=== PATIENT | female | born 1960 | race Two or more races ===

== ENCOUNTER 2016-09-23 11:28 | Emergency (ER) | payer MEDICAID, OTHER ==
[~2016-09-23] VITALS: Ht 154.9 cm; Wt 81.6 kg
[~2016-09-23 11:28] MED LIST: BIAXIN250 MG ORAL; IBUPROFEN600 MG ORAL
[2016-09-23 11:40] VITALS: BP 156/67
[2016-09-23] MEDS ORDERED: DiphenhydrAMINE 50mg/ml Inj IVP ONE (12:00)
[2016-09-23] MEDS ORDERED: Aspirin Baby 81mg ORAL ONE (12:00)
[2016-09-23] MEDS ORDERED: Metoclopramide 10mg/2ml Inj IVP ONE (12:00)
[2016-09-23 12:22] LABS: APPEARANCE,URINE CLEAR; KETONES,URINE 2+ (NEGATIVE); LEUKOCYTE ESTERASE ,URINE 1+ (NEGATIVE); NITRITE,URINE NEGATIVE (NEGATIVE); PH,URINE 6 (4.5-8.0); PROTEIN,URINE NEGATIVE (NEGATIVE); UROBILINOGEN,URINE NORMAL MG/DL (0.0-1.0)
[2016-09-23 12:30] LABS: BACTERIA,URINE FEW /HPF; RBC,URINE 0-2 /HPF (0 - 2); SQUAMOUS EPITHELIAL CELL,UR FEW /LPF (NONE/OCC)
[2016-09-23 12:50] LABS: BASOPHILS % (AUTO) 0.8 % (0.0-2.0); EOSINOPHILS % (AUTO) 0.5 % (0.0-3.0); LYMPHOCYTES % (AUTO) 23.4 % (20.0-45.0); MEAN CORPUSCULAR HEMOGLOBIN 26.2 PG (27.0-31.0); MEAN CORPUSCULAR HGB CONC 31.2 G/DL (32.0-36.0); MEAN CORPUSCULAR VOLUME 84 FL (80-99); MEAN PLATELET VOLUME 6.4 FL (6.5-10.1); MONOCYTES % (AUTO) 5.2 % (1.0-10.0); PLATELET COUNT 277 K/UL (150-450); RED BLOOD COUNT 5.28 M/UL (4.20-5.40); RED CELL DISTRIBUTION WIDTH 14.2 % (11.6-14.8)
[2016-09-23 12:57] LABS: PROTHROMBIN TIME 10.9 SEC (9.30-11.50)
[2016-09-23 13:16] LABS: TROPONIN I < 0.30 ng/mL (<=0.30)
[2016-09-23 13:19] LABS: ALANINE AMINOTRANSFERASE 17 U/L (3-33); ALBUMIN/GLOBULIN RATIO 1.1 (1.0-2.7); ANION GAP 12 (5-15); ASPARTATE AMINO TRANSFERASE 16 U/L (5-40); CALCIUM 9.3 mg/dL (8.6-10.2); CARBON DIOXIDE 27 mEQ/L (20-30); CHLORIDE 99 mEQ/L (98-107); CREATININE 0.6 mg/dL (0.5-0.9); GLOMERULAR FILTRATION RATE > 60 mL/min (>60); HEMOLYSIS 16; POTASSIUM 4.4 mEQ/L (3.4-4.9); SODIUM 138 mEQ/L (135-145); TOTAL PROTEIN 7.9 g/dL (6.6-8.7)
[2016-09-23 13:59] LABS: ERYTHROCYTE SEDIMENTATION RATE 45 MM/HR (0-30)
--- NOTE | 2016-09-23 14:26 | Diagnostic Imaging Report ---
Indication: Right eye pain and head pain on the sixth nerve palsy Technique: Continuous helical CT scanning of the head was performed without intravenous contrast material. Axial and coronal 5 mm sections were generated. Radiation dose was minimized using automated exposure control Dose: Total Dose Length Product - DLP [address] Dose Index - CTDIvol(s) 70.38 mGy. Comparison: 09/12/2015 Findings: The ventricular system is normal in size and configuration. There is no shift of midline structures. No abnormal extra-axial fluid collections are noted. There is no evidence of intracerebral bleeding. No other abnormal high or low density areas are noted within the brain. Left middle fossa probable arachnoid cyst is again demonstrated Visualized orbits are unremarkable. There is sphenoid sinus mucosal disease again demonstrated. The mastoids are clear. Calvarium is intact. No significant interim change Impression: Negative for acute intracranial bleed or mass effect Prominent extra-axial CSF density left temporal tip, may represent a small arachnoid cyst Sinus disease The CT scanner at [facility] is accredited by the [employer] and the scans are performed using protocols designed to limit radiation exposure to as low as reasonably achievable to attain images of sufficient resolution adequate for diagnostic evaluation.
--- NOTE | 2016-09-23 14:41 | Diagnostic Imaging Report ---
Indication: Pain Technique: One view of the chest Comparison: none Findings: Body habitus limits evaluation. The heart is mildly enlarged. Lungs and pleural spaces are clear. Impression: No acute process
--- NOTE | 2016-09-23 14:44 | Emergency Room Report ---
History of Present Illness General Chief Complaint: Headache Source: Patient Present Illness HPI The patient presents with several days of right-sided headache and some double vision. Last year she was told she had sinusitis. It was the same symptoms than as at this time. History of treatment with antibiotics which did not help. She went to [facility] and was diagnosed with a sixth nerve palsy on the right-hand side. This lasted for several months to resolve spontaneously without steroids. Pain in her head is 8/10, aching and pressure, constant, R sided and some radiation to the back of her head. She denies any vomiting. There is some nausea. No fevers. She is on insulin for diabetes in her sugars have been fairly well controlled. She also takes medication for high blood pressure. Allergies: Coded Allergies: No Known Allergies (Unverified , 09/12/15) Patient History Past Medical History: see triage record Social History Narrative with son - From [facility] Last Menstrual Period: N/A Reviewed Nursing Documentation: PMH: Agreed, PSxH: Agreed Nursing Documentation-PMH Hx Hypertension: Yes Hx Diabetes: Yes Review of Systems All Other Systems: negative except mentioned in HPI Physical Exam Vital Signs Date Time Temp Pulse Resp B/P Pulse Ox O2 Delivery O2 Flow Rate FiO2 09/23/16 11:31 98.2 58 18 156/67 97 Sp02 EP Interpretation: reviewed, normal General Appearance: well appearing, no apparent distress, GCS 15 Head: normocephalic Eyes: right eye abnormal EOM - 6th nerve lax, bilateral eye PERRL, bilateral eye normal inspection ENT: moist mucus membranes Neck: supple Respiratory: lungs clear, normal breath sounds Cardiovascular #1: regular rate, rhythm Cardiovascular #2: 2+ radial (R) Gastrointestinal: normal inspection, normal bowel sounds, non tender, no mass, non-distended Musculoskeletal: back normal, gait/station normal, normal range of motion Neurologic: alert, oriented x3, clinical application manager III-XII nml as tested - except for 6th nerve, motor strength/tone normal, DTRs symmetric, sensory intact, cerebellar normal, normal gait, speech normal Psychiatric: mood/affect normal Skin: normal inspection, warm/dry Medical Decision Making Diagnostic Impression: Primary Impression: Sixth nerve palsy of right eye Additional Impression: Hyperglycemia ER Course Patient with headache and 6th nerve palsy. Ddx: CVA, mononeuropathy, diabetes poor control, migraine variant amongst others. Evaluation with labs and CT. Treatment with analgesia (reglan, asa and benadryl). CT normal. Labs with ESR 45, glu 215. The patient was discussed with Dr. Fleming. He said this was the sixth nerve palsy that have been diagnosed before that and improved that this is the expected course of this time also. LEAL resolved with treatment. Patient stable for outpatient observation and treatment Laboratory Tests Test 09/23/16 12:14 09/23/16 12:24 Urine Color Pale yellow Urine Appearance Clear Urine pH 6 (4.5-8.0) Urine Specific Rosser 1.010 (1.005-1.035) Urine Protein Negative (NEGATIVE) Urine Glucose (UA) Negative (NEGATIVE) Urine Ketones 2+ (NEGATIVE) H Urine Occult Blood Negative (NEGATIVE) Urine Nitrite Negative (NEGATIVE) Urine Bilirubin Negative (NEGATIVE) Urine Urobilinogen Normal MG/DL (0.0-1.0) Urine Leukocyte Esterase 1+ (NEGATIVE) H Urine RBC 0-2 /HPF (0 - 2) Urine WBC 2-4 /HPF (0 - 2) Urine Squamous Epithelial Cells Few /LPF (NONE/OCC) Urine Bacteria Few /HPF (NONE) White Blood Count 9.0 K/UL (4.8-10.8) Red Blood Count 5.28 M/UL (4.20-5.40) Hemoglobin 13.8 G/DL (12.0-16.0) Hematocrit 44.4 % (37.0-47.0) Mean Corpuscular Volume 84 FL (80-99) Mean Corpuscular Hemoglobin 26.2 PG (27.0-31.0) L Mean Corpuscular Hemoglobin Concent 31.2 G/DL (32.0-36.0) L Red Cell Distribution Width 14.2 % (11.6-14.8) Platelet Count 277 K/UL (150-450) Mean Platelet Volume 6.4 FL (6.5-10.1) L Neutrophils (%) (Auto) 70.0 % (45.0-75.0) Lymphocytes (%) (Auto) 23.4 % (20.0-45.0) Monocytes (%) (Auto) 5.2 % (1.0-10.0) Eosinophils (%) (Auto) 0.5 % (0.0-3.0) Basophils (%) (Auto) 0.8 % (0.0-2.0) Erythrocyte Sedimentation Rate 45 MM/HR (0-30) H Prothrombin Time 10.9 SEC (9.30-11.50) Prothrombin Time INR 1.0 (0.9-1.1) PTT 23 SEC (23-33) Sodium Level 138 mEQ/L (135-145) Potassium Level 4.4 mEQ/L (3.4-4.9) Chloride Level 99 mEQ/L (98-107) Carbon Dioxide Level 27 mEQ/L (20-30) Anion Gap 12 (5-15) Blood Urea Nitrogen 11 mg/dL (7-23) Creatinine 0.6 mg/dL (0.5-0.9) Estimate Glomerular Filtration Rate > 60 mL/min (>60) Glucose Level 215 mg/dL (74-106) H Calcium Level 9.3 mg/dL (8.6-10.2) Total Bilirubin 0.3 mg/dL (0.0-1.2) Aspartate Amino Transferase (AST) 16 U/L (5-40) Alanine Aminotransferase (ALT) 17 U/L (3-33) Alkaline Phosphatase 117 U/L (35-104) H Total Creatine Kinase 67 U/L (26-140) Troponin I < 0.30 ng/mL (<=0.30) Pro-B-Type Natriuretic Peptide 76 pg/mL (0-125) Total Protein 7.9 g/dL (6.6-8.7) Albumin 4.2 g/dL (3.5-5.2) Globulin 3.7 g/dL Albumin/Globulin Ratio 1.1 (1.0-2.7) EKG Diagnostic Results Rate: bradycardiac ST Segments: no acute changes Rhythm Strip Diag. Results EP Interpretation: yes Rhythm: no PVC's, no ectopy, other - antonio Last Vital Signs Date Time Temp Pulse Resp B/P Pulse Ox O2 Delivery O2 Flow Rate FiO2 09/23/16 15:09 61 18 151/78 100 Room Air 09/23/16 11:31 98.2 Status: improved Disposition: HOME, SELF-CARE Condition: Improved Scripts Ondansetron Odt* (ZOFRAN ODT*) 4 Mg Tab.rapdis 4 MG ORAL Q8HR Y for Nausea & Vomiting, #6 TAB 1 Refill Prov: Bennie Spears M.D. 09/23/16 Tramadol Hcl* (ULTRAM*) 50 Mg Tablet 50 MG ORAL Q6H Y for For Pain, #10 TAB 0 Refills Prov: Bennie Spears M.D. 09/23/16 Referrals: [facility],REFERR[facility] (PCP) Bennie Spears M.D. Sep 23, 2016 14:44
[2016-09-23] MEDS ORDERED: ZOFRAN ODT4 MG ORAL (14:56)
[2016-09-23] MEDS ORDERED: TRAMADOL HCL50 MG ORAL (14:56)
[2016-09-23 15:09] VITALS: BP 151/78
--- NOTE | 2016-09-28 19:07 | Cardiology Report ---
APPROVED REPORT EKG Measurement Heart [id number] [id number] Sinus bradycardia Otherwise normal ECG
== END 2016-09-23 15:11 | disposition home or self-care (01) ==
LOC: EMR 11:55
DX: H49.21 Sixth [abducent] nerve palsy, right eye (principal); E11.65 Type 2 diabetes mellitus with hyperglycemia; I10 Essential (primary) hypertension; J32.9 Chronic sinusitis, unspecified
CPT/HCPCS: 36415; 70450; 71010; 80053; 81003; 82550; 83880; 84484; 85025; 85610; 85651; 85730; 93005; 96374; 96375; 99284; J1200; J2765

== ENCOUNTER 2016-09-25 22:48 | Inpatient (IN) | payer MEDICAID, OTHER ==
[~2016-09-25] VITALS: Ht 16.3 cm; Wt 81.6 kg
[~2016-09-25 22:48] MED LIST changes: +TRAMADOL HCL50 MG ORAL; +ZOFRAN ODT4 MG ORAL
[2016-09-25] MEDS ORDERED: AMLODIPINE BESY10 MG ORAL (23:15)
[2016-09-25] MEDS ORDERED: LOSARTAN POTASS50 MG ORAL (23:15)
[2016-09-25] MEDS ORDERED: ASPIR 8181 MG ORAL (23:15)
[2016-09-25] MEDS ORDERED: CARVEDILOL6.25 MG ORAL (23:15)
[2016-09-25] MEDS ORDERED: NOVOLIN 70100 UNIT/1 SUBQ ×2 (23:15)
[2016-09-25] MEDS ORDERED: FUROSEMIDE20 M1 ORAL (23:15)
[2016-09-25] MEDS ORDERED: Metoclopramide 10mg/2ml Inj IVP ONE (23:30)
[2016-09-25] MEDS ORDERED: DiphenhydrAMINE 50mg/ml Inj IVP ONE (23:30)
[2016-09-25] MEDS ORDERED: Morphine Sulfate 2mg/ml Inj IVP ONE (23:30)
[2016-09-26] VITALS (8 sets, daily range): BP systolic 132–165; BP diastolic 56–77
--- NOTE | 2016-09-26 00:07 | Emergency Room Report ---
History of Present Illness General Chief Complaint: Abdominal Pain Source: Patient Present Illness HPI Patient seen 2 days ago with similar complaints. 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 She is a diabetic. This happened to her a year ago. She also had a headache at that time it was resolved with Reglan, Benadryl and aspirin. She states the headache is now severe. It's right-sided she feels in her eye. She also states that this is connected with nausea and some abdominal discomfort. Has nausea but no vomiting. She denies any fevers. A CT was performed 2 days ago here and was normal. Denies fever. Pain is 9/ 10 constant, sharp and pounding more R side of head and radiating to back of head, not to neck. Never checked for glaucoma. One year ago she was diagnosed her with sinusitis with similar complaints. When she went to [facility] she was told that she had the sixth nerve palsy. Without treated with steroids at that time. He got better on its own but took several months. When here 2 days ago, she was discussed with Dr. Jacobsen. Her sugars have been fairly well regulated. Allergies: Coded Allergies: No Known Allergies (Unverified , 09/12/15) Patient History Past Medical History: see triage record Social History: Denies: alcohol use, drug use, smoking Social History Narrative with son - from [facility] Now: No Reviewed Nursing Documentation: PMH: Agreed, PSxH: Agreed Nursing Documentation-PMH Hx Hypertension: Yes Hx Diabetes: Yes Physical Exam Vital Signs Date Time Temp Pulse Resp B/P Pulse Ox O2 Delivery O2 Flow Rate FiO2 09/25/16 23:02 97.9 57 20 161/77 96 Procedures Additional Procedure Procedure Narrative R eye tonometry. Tetracaine. Tonopen. Pressure 17-21 mm. Tolerated well. Medical Decision Making Diagnostic Impression: Primary Impression: Hyponatremia Additional Impressions: Headache Qualified Codes: R51 - Headache Sixth nerve palsy of right eye Diabetes Qualified Codes: E11.8 - Type 2 diabetes mellitus with unspecified complications; Z79.4 - [facility] (current) use of insulin ER Course Patient presents with right-sided eye pain and headache with nausea and some abdominal discomfort. She was diagnosed with does exert palsy. Differential includes migraine., Vasculitis, glaucoma amongst others. A CT was done last time she was here. Laboratory we repeated our CT is not indicated at this time. She is nonfocal neurologic exam aside from the sixth nerve palsy. She' ll be treated with Reglan, Benadryl and also a small dose of morphine. R eye pressure checked with tonometer = 20 mm pressure. Labs is significant for low sodium and high potassium. This is repeated. The sodium is still low the potassium normalized when it was drawn peripherally. Renal function was normal. Patient improved. Admit telemetry. Will need to follow sodium and consider MRI with head symptoms. Admit Dr. Bobby. Laboratory Tests Test 09/26/16 00:10 09/26/16 01:50 White Blood Count 10.1 K/UL (4.8-10.8) Red Blood Count 5.24 M/UL (4.20-5.40) Hemoglobin 14.2 G/DL (12.0-16.0) Hematocrit 43.0 % (37.0-47.0) Mean Corpuscular Volume 82 FL (80-99) Mean Corpuscular Hemoglobin 27.1 PG (27.0-31.0) Mean Corpuscular Hemoglobin Concent 33.0 G/DL (32.0-36.0) Red Cell Distribution Width 13.8 % (11.6-14.8) Platelet Count 271 K/UL (150-450) Mean Platelet Volume 6.6 FL (6.5-10.1) Neutrophils (%) (Auto) 74.7 % (45.0-75.0) Lymphocytes (%) (Auto) 20.3 % (20.0-45.0) Monocytes (%) (Auto) 4.1 % (1.0-10.0) Eosinophils (%) (Auto) 0.3 % (0.0-3.0) Basophils (%) (Auto) 0.6 % (0.0-2.0) Erythrocyte Sedimentation Rate 24 MM/HR (0-30) Prothrombin Time 10.1 SEC (9.30-11.50) Prothrombin Time INR 1.0 (0.9-1.1) PTT 28 SEC (23-33) Sodium Level 124 mEQ/L (135-145) L 126 mEQ/L (135-145) L Potassium Level 5.8 mEQ/L (3.4-4.9) H 4.0 mEQ/L (3.4-4.9) Chloride Level 86 mEQ/L (98-107) L 89 mEQ/L (98-107) L Carbon Dioxide Level 27 mEQ/L (20-30) 25 mEQ/L (20-30) Anion Gap 11 (5-15) 12 (5-15) Blood Urea Nitrogen 10 mg/dL (7-23) 10 mg/dL (7-23) Creatinine 0.6 mg/dL (0.5-0.9) 0.6 mg/dL (0.5-0.9) Estimate Glomerular Filtration Rate > 60 mL/min (>60) > 60 mL/min (>60) Glucose Level 248 mg/dL (74-106) H 242 mg/dL (74-106) H Calcium Level 9.1 mg/dL (8.6-10.2) 9.0 mg/dL (8.6-10.2) Total Bilirubin 0.4 mg/dL (0.0-1.2) Aspartate Amino Transferase (AST) 38 U/L (5-40) Alanine Aminotransferase (ALT) 20 U/L (3-33) Alkaline Phosphatase 119 U/L (35-104) H Total Creatine Kinase 89 U/L (26-140) Troponin I < 0.30 ng/mL (<=0.30) Total Protein 8.3 g/dL (6.6-8.7) Albumin 4.1 g/dL (3.5-5.2) Globulin 4.2 g/dL Albumin/Globulin Ratio 0.9 (1.0-2.7) L EKG Diagnostic Results Rate: bradycardiac ST Segments: no acute changes Rhythm Strip Diag. Results Rhythm: no PVC's, no ectopy, other - Bradycardia Chest X-Ray Diagnostic Results Chest X-Ray Diagnostic Results : Chest X-Ray Ordered: Yes # of Views/Limited/Complete: 1 View Indication: Other Interpretation: no consolidation, no effusion, no pneumothorax, no acute cardiopulmonary disease Impression: No acute disease Interpreting ER Provider: Electronic signature Bennie Spears MD CT/MRI/US Diagnostic Results CT/MRI/US Diagnostic Results : Imaging Test Ordered: head from 09/23 Impression Impression: Negative for acute intracranial bleed or mass effect Prominent extra-axial CSF density left temporal tip, may represent a small arachnoid cyst Sinus disease Status: improved Disposition: ADMITTED INPATIENT Condition: Serious Referrals: [facility],REFERR[facility] (PCP) Bennie Spears M.D. Sep 26, 2016 00:07
[2016-09-26] MEDS ORDERED: Tetracaine 0.5% Opth Soln RIGHT EYE ONE (00:15)
[2016-09-26 00:31] LABS: BASOPHILS % (AUTO) 0.6 % (0.0-2.0); EOSINOPHILS % (AUTO) 0.3 % (0.0-3.0); LYMPHOCYTES % (AUTO) 20.3 % (20.0-45.0); MEAN CORPUSCULAR HEMOGLOBIN 27.1 PG (27.0-31.0); MEAN CORPUSCULAR VOLUME 82 FL (80-99); MEAN PLATELET VOLUME 6.6 FL (6.5-10.1); MONOCYTES % (AUTO) 4.1 % (1.0-10.0); NEUTROPHILS % (AUTO) 74.7 % (45.0-75.0); PLATELET COUNT 271 K/UL (150-450); RED BLOOD COUNT 5.24 M/UL (4.20-5.40); RED CELL DISTRIBUTION WIDTH 13.8 % (11.6-14.8); WHITE BLOOD COUNT 10.1 K/UL (4.8-10.8)
[2016-09-26 00:40] LABS: PROTHROMBIN TIME 10.1 SEC (9.30-11.50)
[2016-09-26 00:49] LABS: ALANINE AMINOTRANSFERASE 20 U/L (3-33); ALBUMIN/GLOBULIN RATIO 0.9 (1.0-2.7); ANION GAP 11 (5-15); ASPARTATE AMINO TRANSFERASE 38 U/L (5-40); CALCIUM 9.1 mg/dL (8.6-10.2); CARBON DIOXIDE 27 mEQ/L (20-30); CHLORIDE 86 mEQ/L (98-107); CREATININE 0.6 mg/dL (0.5-0.9); GLOMERULAR FILTRATION RATE > 60 mL/min (>60); HEMOLYSIS 290; SODIUM 124 mEQ/L (135-145); TOTAL PROTEIN 8.3 g/dL (6.6-8.7)
[2016-09-26 00:51] LABS: POTASSIUM 5.8 mEQ/L (3.4-4.9); TROPONIN I < 0.30 ng/mL (<=0.30)
[2016-09-26 01:40] LABS: ERYTHROCYTE SEDIMENTATION RATE 24 MM/HR (0-30)
[2016-09-26 02:14] LABS: ANION GAP 12 (5-15); CARBON DIOXIDE 25 mEQ/L (20-30); CHLORIDE 89 mEQ/L (98-107); CREATININE 0.6 mg/dL (0.5-0.9); GLOMERULAR FILTRATION RATE > 60 mL/min (>60); HEMOLYSIS 4; SODIUM 126 mEQ/L (135-145)
[2016-09-26] MEDS ORDERED: Morphine Sulfate 4mg/ml Inj IVP PRN (05:45)
[2016-09-26] MEDS ORDERED: Mylanta II UD 30ml ORAL PRN (06:45)
[2016-09-26] MEDS ORDERED: DuoNeb 0.5-3(2.5)mg/3ml neb HHN PRN ×2 (06:45→16:45)
[2016-09-26] MEDS ORDERED: Morphine Sulfate 2mg/ml Inj IVP PRN (06:45)
[2016-09-26] MEDS ORDERED: Miralax 17gm pkt ORAL PRN ×2 (06:45→16:45)
[2016-09-26] MEDS ORDERED: Zolpidem 5mg tab ORAL PRN ×2 (06:45→16:45)
[2016-09-26] MEDS: NovoLOG Insulin Flexpen SUBQ SCH ×4 (07:13→20:31)
--- NOTE | 2016-09-26 08:12 | History and Physical ---
History of Present Illness General Date patient seen: Sep 26, 2016 Time patient seen: 07:00 Reason for Hospitalization: Abdominal Pain Present Illness HPI 56 y/old female with PMH of HTN, DN, R eye palsy CN , diagnosed 1 yr ago, p- resented with headache, described headache as right sided, severe, feels in right eye c/o n/v/ no diarrhea epigastric discomfort denied fevers, chills in ED no leukocytosis, afebrile stable HH Na-124, K-5.8, treated with Kayexalate ECG with NSR BS 248 UA negative for UTI CXR negative patient was admitted for further management Allergies: Coded Allergies: No Known Allergies (Unverified , 09/12/15) Medication History Scheduled Amlodipine Besylate* (Amlodipine Besylate*), 10 MG ORAL DAILY, (Reported) Aspirin* (Aspir 81*), 81 MG ORAL DAILY, (Reported) Carvedilol* (Carvedilol*), 6.25 MG ORAL EVERY 12 HOURS, (Reported) Clarithromycin* (Biaxin*), 500 MG ORAL TWICE A DAY Furosemide* (Lasix*), 20 MG ORAL DAILY, (Reported) Hum Insulin Nph/Reg Insulin Hm (Novolin 70-30 100 Unit/Ml Vial), 36 SUBQ DAILY, (Reported) Hum Insulin Nph/Reg Insulin Hm (Novolin 70-30 100 Unit/Ml Vial), 18 SUBQ DAILY, (Reported) Losartan Potassium* (Losartan Potassium*), 100 MG ORAL DAILY, (Reported) Scheduled PRN Ibuprofen* (Motrin*), 600 MG ORAL Q1HR PRN for For Pain Ondansetron Odt* (Zofran Odt*), 4 MG ORAL Q8HR PRN for Nausea & Vomiting Tramadol Hcl* (Ultram*), 50 MG ORAL Q6H PRN for For Pain Miscellaneous Medications Hum Insulin Nph/Reg Insulin Hm (Novolin 70-30 100 Unit/Ml Vial), 0 SUBQ, ( Reported) Patient History Healthcare decision maker Resuscitation status Advanced Directive on File Past Medical/Surgical History Past Medical/Surgical History: (1) HTN (hypertension) (2) Diabetes (3) GERD (gastroesophageal reflux disease) (4) Sixth nerve palsy of right eye Review of Systems Constitutional: Reports: weakness Eye: Reports: see HPI ENT: Reports: no symptoms Respiratory: Reports: no symptoms Cardiovascular: Reports: no symptoms, other - HTN Gastrointestinal: Reports: see HPI Genitourinary: Reports: no symptoms Musculoskeletal: Reports: no symptoms Skin: Reports: no symptoms Psychiatric: Reports: no symptoms Neurological: Reports: headache, see HPI Endocrine: Reports: other - DM Hematologic/Lymphatic: Reports: no symptoms Physical Exam General Appearance: WD/WN, no apparent distress, alert Lines, tubes and drains: peripheral HEENT: normocephalic, atraumatic, anicteric, mucous membranes moist, other - R eye with palsy Neck: non-tender, supple Respiratory/Chest: chest wall non-tender, lungs clear, no respiratory distress , no accessory muscle use Cardiovascular/Chest: normal peripheral pulses, normal rate, regular rhythm, no JVD Abdomen: normal bowel sounds, non tender, soft Extremities: normal range of motion, non-tender, no calf tenderness Skin Exam: normal pigmentation, warm/dry Neurologic: alert, oriented x 3, responsive Musculoskeletal: normal muscle bulk Last 24 Hour Vital Signs Date Time Temp Pulse Resp B/P Pulse Ox O2 Delivery O2 Flow Rate FiO2 09/26/16 07:36 97.0 68 20 150/74 99 Room Air 09/26/16 07:27 77 18 Room Air 09/26/16 05:43 55 15 143/56 96 Room Air 09/26/16 04:30 97.8 62 17 152/66 100 09/26/16 02:30 98.0 61 16 148/56 99 09/26/16 00:57 97.8 09/26/16 00:00 97.9 20 161/77 96 09/25/16 23:02 97.9 57 20 161/77 96 Intake and Output 09/25/16 09/26/16 18:59 06:59 Intake Total 2050 ml Balance 2050 ml Intake Oral 50 ml IV Total 2000 ml Laboratory Tests Test 09/26/16 00:10 09/26/16 01:50 White Blood Count 10.1 K/UL (4.8-10.8) Red Blood Count 5.24 M/UL (4.20-5.40) Hemoglobin 14.2 G/DL (12.0-16.0) Hematocrit 43.0 % (37.0-47.0) Mean Corpuscular Volume 82 FL (80-99) Mean Corpuscular Hemoglobin 27.1 PG (27.0-31.0) Mean Corpuscular Hemoglobin Concent 33.0 G/DL (32.0-36.0) Red Cell Distribution Width 13.8 % (11.6-14.8) Platelet Count 271 K/UL (150-450) Mean Platelet Volume 6.6 FL (6.5-10.1) Neutrophils (%) (Auto) 74.7 % (45.0-75.0) Lymphocytes (%) (Auto) 20.3 % (20.0-45.0) Monocytes (%) (Auto) 4.1 % (1.0-10.0) Eosinophils (%) (Auto) 0.3 % (0.0-3.0) Basophils (%) (Auto) 0.6 % (0.0-2.0) Erythrocyte Sedimentation Rate 24 MM/HR (0-30) Prothrombin Time 10.1 SEC (9.30-11.50) Prothromb Time International Ratio 1.0 (0.9-1.1) Activated Partial Thromboplast Time 28 SEC (23-33) Sodium Level 124 mEQ/L (135-145) L 126 mEQ/L (135-145) L Potassium Level 5.8 mEQ/L (3.4-4.9) H 4.0 mEQ/L (3.4-4.9) Chloride Level 86 mEQ/L (98-107) L 89 mEQ/L (98-107) L Carbon Dioxide Level 27 mEQ/L (20-30) 25 mEQ/L (20-30) Anion Gap 11 (5-15) 12 (5-15) Blood Urea Nitrogen 10 mg/dL (7-23) 10 mg/dL (7-23) Creatinine 0.6 mg/dL (0.5-0.9) 0.6 mg/dL (0.5-0.9) Estimat Glomerular Filtration Rate > 60 mL/min (>60) > 60 mL/min (>60) Glucose Level 248 mg/dL (74-106) H 242 mg/dL (74-106) H Calcium Level 9.1 mg/dL (8.6-10.2) 9.0 mg/dL (8.6-10.2) Total Bilirubin 0.4 mg/dL (0.0-1.2) Aspartate Amino Transf (AST/SGOT) 38 U/L (5-40) Alanine Aminotransferase (ALT/SGPT) 20 U/L (3-33) Alkaline Phosphatase 119 U/L (35-104) H Total Creatine Kinase 89 U/L (26-140) Troponin I < 0.30 ng/mL (<=0.30) Total Protein 8.3 g/dL (6.6-8.7) Albumin 4.1 g/dL (3.5-5.2) Globulin 4.2 g/dL Albumin/Globulin Ratio 0.9 (1.0-2.7) L Height (Feet): 5 Height (Inches): 1.00 Weight (Pounds): 180 Medications Current Medications Medications (Trade) Dose Ordered Sig/Reid Route PRN Reason Start Time Stop Time Status Last Admin Dose Admin Acetaminophen (Tylenol) 650 mg Q4H PRN ORAL fever 09/26/16 06:45 10/26/16 06:44 Al Hydroxide/Mg Hydroxide (Mylanta II) 30 ml Q6H PRN ORAL dyspepsia 09/26/16 06:45 10/26/16 06:44 Albuterol/ Ipratropium (DuoNeb 0.5-3(2.5)mg/3ml) 3 ml Q6H PRN HHN dyspnea 09/26/16 06:45 10/01/16 06:44 Amlodipine Besylate (Norvasc) 10 mg DAILY ORAL 09/26/16 09:00 10/26/16 08:59 Aspirin (Ecotrin) 81 mg DAILY ORAL 09/26/16 09:00 10/26/16 08:59 Carvedilol (Coreg) 6.25 mg EVERY 12 HOURS ORAL 09/26/16 09:00 10/26/16 08:59 Clonidine HCl (Catapres) 0.1 mg Q4H PRN ORAL For High Blood Pressure 09/26/16 06:45 10/26/16 06:44 Dextrose (Dextrose 50%) STAT PRN IV Hypoglycemia 09/26/16 06:45 10/26/16 06:44 Furosemide (Lasix) 100 mg Q8H PRN IV dyspnea 09/26/16 06:45 10/26/16 06:44 Heparin Sodium (Porcine) (Heparin 5000 units/ml) 5,000 units EVERY 12 HOURS SUBQ 09/26/16 09:00 10/26/16 08:59 Insulin Aspart (NovoLOG) BEFORE MEALS AND HS SUBQ 09/26/16 06:30 10/26/16 06:29 09/26/16 07:13 Losartan Potassium (Cozaar) 100 mg DAILY ORAL 09/26/16 09:00 10/26/16 08:59 Morphine Sulfate (Morphine Sulfate) 1 mg EVERY 4 HOURS PRN IVP For Pain 09/26/16 06:45 10/03/16 06:44 UNV Morphine Sulfate (Morphine Sulfate) 4 mg Q4H PRN IVP For Pain 09/26/16 05:45 10/03/16 05:44 Ondansetron HCl 4 mg 4 mg Q6H PRN IVP Nausea & Vomiting 09/26/16 05:45 10/26/16 05:44 Polyethylene Glycol (Miralax) 17 gm HSPRN PRN ORAL Constipation 09/26/16 06:45 10/26/16 06:44 Sodium Chloride (Sodium Chloride 1000ml bag) 1,000 ml @ 200 mls/hr Q5H IV 09/26/16 05:45 10/26/16 05:44 09/26/16 06:51 Zolpidem Tartrate (Ambien) 5 mg HSPRN PRN ORAL Insomnia 09/26/16 06:45 10/26/16 06:44 Assessment/Plan Assessment/Plan ASSESSMENT acute hyponatremia- possibly NSAID hyperkalemia-resolved GERD R eye CN palsy HTN DM Headache PLAN OF CARE tele s/p IVF with NS, no significant effect on Na IVF dc nephro eval 3% NaCL as per nephro hypo Na workup s/p Kayexalate K stable renal parameters stable GI consult appreciated a/emetic prn GI procedures on hold for now as per GI BP management with multiple regimen of CCB, ARB, BB, optimize as needed continue ASA BS management with SS of insulin check HgbA1c check lipid panel, TSH DVT, GI prophylaxis bowel regimen pain management case discussed and evaluated by supervising physician Tuan Arteaga)Haylee NP Sep 26, 2016 08:12
--- NOTE | 2016-09-26 08:19 | General Progress Note ---
Assessment/Plan Problem List: (1) GERD (gastroesophageal reflux disease) ICD Codes: K21.9 - Gastro-esophageal reflux disease without esophagitis SNOMED: 648055695 (2) Headache ICD Codes: R51 - Headache SNOMED: 26303625 Qualifiers: Qualified Codes: R51 - Headache (3) Diabetes ICD Codes: E11.9 - Type 2 diabetes mellitus without complications SNOMED: 34049649 Qualifiers: Qualified Codes: E11.8 - Type 2 diabetes mellitus with unspecified complications; Z79.4 - intermodal dispatcher (current) use of insulin (4) Hyponatremia ICD Codes: E87.1 - Hypo-osmolality and hyponatremia SNOMED: 32580310 Assessment/Plan add ppi fu labs hold GI procedures for now Subjective ROS Limited/Unobtainable: Yes Allergies: Coded Allergies: No Known Allergies (Unverified , 09/12/15) Subjective c/o epigastric abd pain Objective Last 24 Hour Vital Signs Date Time Temp Pulse Resp B/P Pulse Ox O2 Delivery O2 Flow Rate FiO2 09/26/16 07:36 97.0 68 20 150/74 99 Room Air 09/26/16 07:27 77 18 Room Air 09/26/16 05:43 55 15 143/56 96 Room Air 09/26/16 04:30 97.8 62 17 152/66 100 09/26/16 02:30 98.0 61 16 148/56 99 09/26/16 00:57 97.8 09/26/16 00:00 97.9 20 161/77 96 09/25/16 23:02 97.9 57 20 161/77 96 Intake and Output 09/25/16 09/26/16 19:00 07:00 Intake Total 2050 ml Balance 2050 ml Intake Oral 50 ml IV Total 2000 ml Laboratory Tests 09/26/16 00:10: White Blood Count 10.1, Red Blood Count 5.24, Hemoglobin 14.2, Hematocrit 43.0, Mean Corpuscular Volume 82, Mean Corpuscular Hemoglobin 27.1, Mean Corpuscular Hemoglobin Concent 33.0, Red Cell Distribution Width 13.8, Platelet Count 271, Mean Platelet Volume 6.6, Neutrophils (%) (Auto) 74.7, Lymphocytes (%) (Auto) 20.3, Monocytes (%) (Auto) 4.1, Eosinophils (%) (Auto) 0.3, Basophils (%) (Auto ) 0.6, Erythrocyte Sedimentation Rate 24, Prothrombin Time 10.1, Prothromb Time International Ratio 1.0, Activated Partial Thromboplast Time 28, Sodium Level 124L, Potassium Level 5.8H, Chloride Level 86L, Carbon Dioxide Level 27, Anion Gap 11, Blood Urea Nitrogen 10, Creatinine 0.6, Estimat Glomerular Filtration Rate > 60, Glucose Level 248H, Calcium Level 9.1, Total Bilirubin 0.4, Aspartate Amino Transf (AST/SGOT) 38, Alanine Aminotransferase (ALT/SGPT) 20, Alkaline Phosphatase 119H, Total Creatine Kinase 89, Troponin I < 0.30, Total Protein 8.3, Albumin 4.1, Globulin 4.2, Albumin/Globulin Ratio 0.9L 09/26/16 01:50: Sodium Level 126L, Potassium Level 4.0, Chloride Level 89L, Carbon Dioxide Level 25, Anion Gap 12, Blood Urea Nitrogen 10, Creatinine 0.6, Estimat Glomerular Filtration Rate > 60, Glucose Level 242H, Calcium Level 9.0 Height (Feet): 5 Height (Inches): 1.00 Weight (Pounds): 180 General Appearance: alert EENT: normal ENT inspection Neck: supple Cardiovascular: normal rate Respiratory/Chest: lungs clear Abdomen: normal bowel sounds, soft, tender Extremities: non-tender KANWAL CABRAL Sep 26, 2016 08:19
[2016-09-26] MEDS ORDERED: Heparin 5000 units/ml inj SUBQ SCH (09:00)
[2016-09-26] MEDS ORDERED: Losartan 50mg tab ORAL SCH (09:00)
[2016-09-26] MEDS ORDERED: Aspirin EC 81mg tab ORAL SCH (09:00)
[2016-09-26] MEDS ORDERED: Carvedilol 6.25mg Tab ORAL SCH (09:00)
--- NOTE | 2016-09-26 11:00 | Diagnostic Imaging Report ---
Indication: Chest pain Technique: XRAY CHEST 1 V Comparison: 09/23/16 Findings: Cardiomediastinal silhouette is stable. There is no consolidation or pleural effusion. Degenerative changes of the spine are seen. Impression: No acute cardiopulmonary disease.
[2016-09-26 12:18] LABS: MAGNESIUM 1.9 mg/dL (1.7-2.5); PHOSPHORUS 2.5 mg/dL (2.5-4.8)
[2016-09-26 12:22] LABS: ALANINE AMINOTRANSFERASE 15 U/L (3-33); ANION GAP 12 (5-15); ASPARTATE AMINO TRANSFERASE 13 U/L (5-40); CALCIUM 8.7 mg/dL (8.6-10.2); CARBON DIOXIDE 24 mEQ/L (20-30); CHLORIDE 100 mEQ/L (98-107); CREATININE 0.5 mg/dL (0.5-0.9); GLOMERULAR FILTRATION RATE > 60 mL/min (>60); HEMOLYSIS 5; POTASSIUM 3.8 mEQ/L (3.4-4.9); SODIUM 136 mEQ/L (135-145); TOTAL PROTEIN 7.4 g/dL (6.6-8.7); URIC ACID 2.8 mg/dL (3.0-7.5)
--- NOTE | 2016-09-26 12:25 | Consultation ---
Consult Note Consult Note asked to eval for low Na Patient seen 2 days ago with similar complaints. She's diagnosed out of 6 her palsy on the right-hand side. She is a diabetic. This happened to her a year ago. She also had a headache at that time it was resolved with Reglan, Benadryl and aspirin. She states the headache is now severe. It's right-sided she feels in her eye. She also states that this is connected with nausea and some abdominal discomfort. His nausea but no vomiting. She denies any fevers. One year ago she was diagnosed her with sinusitis with similar complaints. When she went to [facility] she was told that she had the sixth nerve palsy. Without treated with steroids at that time. He got better on its own but took several months. When here 2 days ago, she was discussed with Dr. Jacobsen. First sugars have been fairly well regulated. Hx Hypertension: Yes Hx Diabetes: Yes Vital Signs Date Time Temp Pulse Resp B/P Pulse Ox O2 Delivery O2 Flow Rate FiO2 09/25/16 23:02 97.9 57 20 161/77 96 examined- data reviewed discussed with son Assessment/Plan HypoNatremia- Obese- DM HTN right eye nerve palsy Plan; 3% saline 250 cc Urine and Lab tests for ? SIADH futher comments after above results SELIN VASQUEZ Sep 26, 2016 12:25
[2016-09-26 12:37] LABS: KETONES,URINE NEGATIVE (NEGATIVE); LEUKOCYTE ESTERASE ,URINE NEGATIVE (NEGATIVE); NITRITE,URINE NEGATIVE (NEGATIVE); PH,URINE 7 (4.5-8.0); PROTEIN,URINE NEGATIVE (NEGATIVE); UROBILINOGEN,URINE NORMAL MG/DL (0.0-1.0)
[2016-09-26 12:39] LABS: APPEARANCE,URINE CLEAR
[2016-09-26 12:48] LABS: RBC,URINE 0 /HPF (0 - 2); SQUAMOUS EPITHELIAL CELL,UR FEW /LPF (NONE/OCC); WBC,URINE 0-2 /HPF (0 - 2)
[2016-09-26] MEDS ORDERED: NaCl 3% 500ml 250 ML IV ONE (13:30)
[2016-09-26] MEDS: Carvedilol 6.25mg Tab ORAL SCH (20:27)
[2016-09-26] MEDS: Heparin 5000 units/ml inj SUBQ SCH (20:31)
[2016-09-26] MEDS: Morphine Sulfate 2mg/ml Inj IVP PRN (22:07)
[2016-09-27] VITALS: BP 138/67
[2016-09-27] MEDS: Morphine Sulfate 2mg/ml Inj IVP PRN ×2 (02:25→08:08)
[2016-09-27 04:00] VITALS: BP 132/65
[2016-09-27] MEDS: NovoLOG Insulin Flexpen SUBQ SCH ×4 (06:34→20:27)
[2016-09-27 07:16] LABS: EOSINOPHILS % (AUTO) 0.4 % (0.0-3.0); LYMPHOCYTES % (AUTO) 34.3 % (20.0-45.0); MEAN CORPUSCULAR HEMOGLOBIN 26.8 PG (27.0-31.0); MEAN CORPUSCULAR HGB CONC 32.1 G/DL (32.0-36.0); MEAN CORPUSCULAR VOLUME 83 FL (80-99); MEAN PLATELET VOLUME 6.8 FL (6.5-10.1); MONOCYTES % (AUTO) 5.7 % (1.0-10.0); NEUTROPHILS % (AUTO) 58.7 % (45.0-75.0); PLATELET COUNT 268 K/UL (150-450); RED BLOOD COUNT 5.21 M/UL (4.20-5.40); RED CELL DISTRIBUTION WIDTH 14.1 % (11.6-14.8); WHITE BLOOD COUNT 7.7 K/UL (4.8-10.8)
[2016-09-27 07:29] LABS: HEMOGLOBIN A1C 8.8 % (< 6.0)
[2016-09-27 07:47] LABS: ALANINE AMINOTRANSFERASE 15 U/L (3-33); ANION GAP 13 (5-15); ASPARTATE AMINO TRANSFERASE 13 U/L (5-40); CALCIUM 8.9 mg/dL (8.6-10.2); CARBON DIOXIDE 26 mEQ/L (20-30); CHLORIDE 99 mEQ/L (98-107); CHOLESTEROL 193 mg/dL (< 200); CHOLESTEROL/HDL RATIO 3.6 (3.3-4.4); CREATININE 0.6 mg/dL (0.5-0.9); GLOMERULAR FILTRATION RATE > 60 mL/min (>60); HEMOLYSIS 5; LDL CHOLESTEROL (CALC.) 119 mg/dL (60-99); POTASSIUM 3.9 mEQ/L (3.4-4.9); SODIUM 138 mEQ/L (135-145); TOTAL PROTEIN 7.3 g/dL (6.6-8.7)
[2016-09-27 07:48] LABS: CRP QUANT 0.7 mg/dL (< 0.5); MAGNESIUM 1.9 mg/dL (1.7-2.5); PHOSPHORUS 2.7 mg/dL (2.5-4.8); URIC ACID 3.4 mg/dL (3.0-7.5)
[2016-09-27 07:49] LABS: THYROID STIMULATING HORMONE 0.915 uIU/mL (0.300-4.500)
[2016-09-27 07:53] VITALS: BP 149/72
[2016-09-27] MEDS: Aspirin EC 81mg tab ORAL SCH (08:38)
[2016-09-27] MEDS: Losartan 50mg tab ORAL SCH (08:38)
[2016-09-27] MEDS: Carvedilol 6.25mg Tab ORAL SCH ×2 (08:39→20:24)
[2016-09-27] MEDS: Heparin 5000 units/ml inj SUBQ SCH ×2 (08:41→20:25)
--- NOTE | 2016-09-27 11:01 | Pulmonology Progress Note ---
Assessment/Plan Assessment/Plan ASSESSMENT acute hyponatremia-resolved possibly NSAID hyperkalemia-resolved GERD R eye CN palsy HTN DM OOC hypercholesteremia Headache PLAN OF CARE MS floor nephro follows s/p 3% NaCL Na normalized hypo Na workup s/p Kayexalate K stable renal parameters stable GI consult appreciated a/emetic prn GI procedures on hold for now as per GI BP management with multiple regimen of CCB, ARB, BB, optimize as needed continue ASA BS management with SS of insulin check HgbA1c -8.8 not at goal add Levemir needs optimization of anti-glycemic as outpatient lipid panel with elevated LDL add statin encourage compliance at home with medication regimen educated on low fat low cholesterol diabetic diet dietary eval , TSH -WNL DVT, GI prophylaxis bowel regimen pain management case discussed and evaluated by supervising physician Subjective Allergies: Coded Allergies: No Known Allergies (Unverified , 09/12/15) Subjective Na stabilized, up to normal after 3 % NaCl reports pain around R eye BS not well controlled LDL elevated, takes statin at home, not apparently complaint Objective Last 24 Hour Vital Signs Date Time Temp Pulse Resp B/P Pulse Ox O2 Delivery O2 Flow Rate FiO2 09/27/16 09:16 97.9 09/27/16 08:39 58 149/72 09/27/16 08:39 58 149/72 09/27/16 08:38 149/72 09/27/16 07:53 97.9 58 19 149/72 96 Room Air 09/27/16 07:39 52 16 Room Air 09/27/16 04:00 97.3 53 18 132/65 96 Room Air 09/27/16 00:00 97.2 64 18 138/67 95 Room Air 09/26/16 20:28 165/76 09/26/16 20:27 64 165/76 09/26/16 20:00 98.6 64 18 165/76 95 Room Air 09/26/16 19:28 72 18 Room Air 09/26/16 16:22 98.2 59 20 132/65 97 Room Air 09/26/16 15:53 97.3 59 18 146/59 98 Room Air 09/26/16 12:00 61 09/26/16 11:17 97.1 63 18 140/63 99 Room Air Intake and Output 09/26/16 09/27/16 19:00 07:00 Intake Total 910 ml 550 ml Balance 910 ml 550 ml Intake Oral 850 ml 400 ml IV Total 60 ml 150 ml # Voids 4 2 Objective General Appearance: WD/WN, no apparent distress, alert Lines, tubes and drains: peripheral HEENT: normocephalic, atraumatic, anicteric, mucous membranes moist, R eye palsy Neck: non-tender, supple Respiratory/Chest: chest wall non-tender, lungs clear, no respiratory distress , no accessory muscle use Cardiovascular/Chest: normal peripheral pulses, normal rate, regular rhythm, no JVD Abdomen: normal bowel sounds, non tender, soft Extremities: normal range of motion, non-tender, no calf tenderness Skin Exam: normal pigmentation, warm/dry Neurologic: alert, oriented x 3, responsive Musculoskeletal: normal muscle bulk Laboratory Tests 09/26/16 11:30: Sodium Level 136#, Potassium Level 3.8, Chloride Level 100, Carbon Dioxide Level 24, Anion Gap 12, Blood Urea Nitrogen 9, Creatinine 0.5, Estimat Glomerular Filtration Rate > 60, Glucose Level 258H, Plasma/Serum Osmolality [ Pending], Uric Acid 2.8L, Calcium Level 8.7, Phosphorus Level 2.5, Magnesium Level 1.9, Total Bilirubin 0.2, Aspartate Amino Transf (AST/SGOT) 13, Alanine Aminotransferase (ALT/SGPT) 15, Alkaline Phosphatase 113H, Total Protein 7.4, Albumin 3.7, Globulin 3.7, Albumin/Globulin Ratio 1.0 09/27/16 04:30: Sodium Level 138, Potassium Level 3.9, Chloride Level 99, Carbon Dioxide Level 26, Anion Gap 13, Blood Urea Nitrogen 11, Creatinine 0.6, Estimat Glomerular Filtration Rate > 60, Glucose Level 228H, Uric Acid 3.4, Calcium Level 8.9, Phosphorus Level 2.7, Magnesium Level 1.9, Total Bilirubin 0.2, Aspartate Amino Transf (AST/SGOT) 13, Alanine Aminotransferase (ALT/SGPT) 15, Alkaline Phosphatase 112H, Total Protein 7.3, Albumin 3.7, Globulin 3.6, Albumin/ Globulin Ratio 1.0, White Blood Count 7.7, Red Blood Count 5.21, Hemoglobin 14.0 , Hematocrit 43.5, Mean Corpuscular Volume 83, Mean Corpuscular Hemoglobin 26.8L , Mean Corpuscular Hemoglobin Concent 32.1, Red Cell Distribution Width 14.1, Platelet Count 268, Mean Platelet Volume 6.8, Neutrophils (%) (Auto) 58.7, Lymphocytes (%) (Auto) 34.3, Monocytes (%) (Auto) 5.7, Eosinophils (%) (Auto) 0.4, Basophils (%) (Auto) 1.0, Hemoglobin A1c 8.8H, Gamma Glutamyl Transpeptidase 30, Total Creatine Kinase 47, C-Reactive Protein, Quantitative 0.7H, Pro-B-Type Natriuretic Peptide 368H, Triglycerides Level 107, Cholesterol Level 193, LDL Cholesterol 119H, HDL Cholesterol 53, Cholesterol/HDL Ratio 3.6, Thyroid Stimulating Hormone (TSH) 0.915 Current Medications Medications (Trade) Dose Ordered Sig/Reid Route PRN Reason Start Time Stop Time Status Last Admin Dose Admin Acetaminophen (Tylenol) 650 mg Q4H PRN ORAL fever 09/26/16 16:45 10/26/16 16:44 Albuterol/ Ipratropium (DuoNeb 0.5-3(2.5)mg/3ml) 3 ml Q6H PRN HHN dyspnea 09/26/16 16:45 10/01/16 16:44 Amlodipine Besylate (Norvasc) 10 mg DAILY ORAL 09/27/16 09:00 10/27/16 08:59 09/27/16 08:39 Aspirin (Ecotrin) 81 mg DAILY ORAL 09/27/16 09:00 10/27/16 08:59 09/27/16 08:38 Carvedilol (Coreg) 6.25 mg EVERY 12 HOURS ORAL 09/26/16 21:00 10/26/16 20:59 09/27/16 08:39 Clonidine HCl (Catapres) 0.1 mg Q4H PRN ORAL SBP > 160 09/26/16 16:45 10/26/16 16:44 09/26/16 20:28 Dextrose (Dextrose 50%) STAT PRN IV Hypoglycemia 09/26/16 16:45 10/26/16 16:44 Heparin Sodium (Porcine) (Heparin 5000 units/ml) 5,000 units EVERY 12 HOURS SUBQ 09/26/16 21:00 10/26/16 20:59 09/27/16 08:41 Insulin Aspart (NovoLOG) BEFORE MEALS AND HS SUBQ 09/26/16 17:30 10/26/16 17:29 09/27/16 06:34 Losartan Potassium (Cozaar) 100 mg DAILY ORAL 09/27/16 09:00 10/27/16 08:59 09/27/16 08:38 Morphine Sulfate (Morphine Sulfate) 1 mg Q4H PRN IVP For Pain 4-10 09/26/16 16:45 10/03/16 16:44 09/27/16 08:08 Ondansetron HCl (Zofran) 4 mg Q6H PRN IVP Nausea & Vomiting 09/26/16 16:45 10/26/16 16:44 Pantoprazole (Protonix) 40 mg DAILY ORAL 09/27/16 09:00 10/27/16 08:59 09/27/16 08:38 Polyethylene Glycol (Miralax) 17 gm HSPRN PRN ORAL Constipation 09/26/16 16:45 10/26/16 16:44 Zolpidem Tartrate (Ambien) 5 mg HSPRN PRN ORAL Insomnia 09/26/16 16:45 10/26/16 16:44 Tuan (Kobe)Haylee NP Sep 27, 2016 11:01
[2016-09-27 11:34] VITALS: BP 138/70
--- NOTE | 2016-09-27 11:53 | General Progress Note ---
Assessment/Plan Status: stable Status Narrative stable from renal stand Assessment/Plan Status; HypoNatremia- resolved Obese- DM HTN right eye nerve palsy Plan; as is labs reviewed Subjective ROS Limited/Unobtainable: No Constitutional: Reports: malaise Allergies: Coded Allergies: No Known Allergies (Unverified , 09/12/15) Objective Last 24 Hour Vital Signs Date Time Temp Pulse Resp B/P Pulse Ox O2 Delivery O2 Flow Rate FiO2 09/27/16 11:34 98.2 56 19 138/70 97 Room Air 09/27/16 09:16 97.9 09/27/16 08:39 58 149/72 09/27/16 08:39 58 149/72 09/27/16 08:38 149/72 09/27/16 07:53 97.9 58 19 149/72 96 Room Air 09/27/16 07:39 52 16 Room Air 09/27/16 04:00 97.3 53 18 132/65 96 Room Air 09/27/16 00:00 97.2 64 18 138/67 95 Room Air 09/26/16 20:28 165/76 09/26/16 20:27 64 165/76 09/26/16 20:00 98.6 64 18 165/76 95 Room Air 09/26/16 19:28 72 18 Room Air 09/26/16 16:22 98.2 59 20 132/65 97 Room Air 09/26/16 15:53 97.3 59 18 146/59 98 Room Air 09/26/16 12:00 61 Intake and Output 09/26/16 09/27/16 19:00 07:00 Intake Total 910 ml 550 ml Balance 910 ml 550 ml Intake Oral 850 ml 400 ml IV Total 60 ml 150 ml # Voids 4 2 Laboratory Tests 09/27/16 04:30: White Blood Count 7.7, Red Blood Count 5.21, Hemoglobin 14.0, Hematocrit 43.5, Mean Corpuscular Volume 83, Mean Corpuscular Hemoglobin 26.8L, Mean Corpuscular Hemoglobin Concent 32.1, Red Cell Distribution Width 14.1, Platelet Count 268, Mean Platelet Volume 6.8, Neutrophils (%) (Auto) 58.7, Lymphocytes (%) (Auto) 34.3, Monocytes (%) (Auto) 5.7, Eosinophils (%) (Auto) 0.4, Basophils (%) (Auto ) 1.0, Sodium Level 138, Potassium Level 3.9, Chloride Level 99, Carbon Dioxide Level 26, Anion Gap 13, Blood Urea Nitrogen 11, Creatinine 0.6, Estimat Glomerular Filtration Rate > 60, Glucose Level 228H, Hemoglobin A1c 8.8H, Uric Acid 3.4, Calcium Level 8.9, Phosphorus Level 2.7, Magnesium Level 1.9, Total Bilirubin 0.2, Gamma Glutamyl Transpeptidase 30, Aspartate Amino Transf (AST/ SGOT) 13, Alanine Aminotransferase (ALT/SGPT) 15, Alkaline Phosphatase 112H, Total Creatine Kinase 47, C-Reactive Protein, Quantitative 0.7H, Pro-B-Type Natriuretic Peptide 368H, Total Protein 7.3, Albumin 3.7, Globulin 3.6, Albumin/ Globulin Ratio 1.0, Triglycerides Level 107, Cholesterol Level 193, LDL Cholesterol 119H, HDL Cholesterol 53, Cholesterol/HDL Ratio 3.6, Thyroid Stimulating Hormone (TSH) 0.915 Height (Feet): 5 Height (Inches): 6.40 Weight (Pounds): 180 General Appearance: no apparent distress Cardiovascular: normal rate Respiratory/Chest: decreased breath sounds Abdomen: soft Objective obese no change in PE SELIN VASQUEZ Sep 27, 2016 11:53
[2016-09-27] MEDS ORDERED: Levemir Flexpen SUBQ SCH (12:00)
[2016-09-27] MEDS: Levemir Flexpen SUBQ SCH ×2 (13:12→20:27)
--- NOTE | 2016-09-27 14:49 | Neurology Progress Note ---
Interim History Interim History ROS Limited/Unobtainable: No Objective Physical Exam Last Vital Signs Date Time Temp Pulse Resp B/P Pulse Ox O2 Delivery O2 Flow Rate FiO2 09/27/16 11:34 98.2 56 19 138/70 97 Room Air Laboratory Tests Test 09/27/16 04:30 White Blood Count 7.7 K/UL (4.8-10.8) Red Blood Count 5.21 M/UL (4.20-5.40) Hemoglobin 14.0 G/DL (12.0-16.0) Hematocrit 43.5 % (37.0-47.0) Mean Corpuscular Volume 83 FL (80-99) Mean Corpuscular Hemoglobin 26.8 PG (27.0-31.0) L Mean Corpuscular Hemoglobin Concent 32.1 G/DL (32.0-36.0) Red Cell Distribution Width 14.1 % (11.6-14.8) Platelet Count 268 K/UL (150-450) Mean Platelet Volume 6.8 FL (6.5-10.1) Neutrophils (%) (Auto) 58.7 % (45.0-75.0) Lymphocytes (%) (Auto) 34.3 % (20.0-45.0) Monocytes (%) (Auto) 5.7 % (1.0-10.0) Eosinophils (%) (Auto) 0.4 % (0.0-3.0) Basophils (%) (Auto) 1.0 % (0.0-2.0) Sodium Level 138 mEQ/L (135-145) Potassium Level 3.9 mEQ/L (3.4-4.9) Chloride Level 99 mEQ/L (98-107) Carbon Dioxide Level 26 mEQ/L (20-30) Anion Gap 13 (5-15) Blood Urea Nitrogen 11 mg/dL (7-23) Creatinine 0.6 mg/dL (0.5-0.9) Estimat Glomerular Filtration Rate > 60 mL/min (>60) Glucose Level 228 mg/dL (74-106) H Hemoglobin A1c 8.8 % (< 6.0) H Uric Acid 3.4 mg/dL (3.0-7.5) Calcium Level 8.9 mg/dL (8.6-10.2) Phosphorus Level 2.7 mg/dL (2.5-4.8) Magnesium Level 1.9 mg/dL (1.7-2.5) Total Bilirubin 0.2 mg/dL (0.0-1.2) Gamma Glutamyl Transpeptidase 30 U/L (5-36) Aspartate Amino Transf (AST/SGOT) 13 U/L (5-40) Alanine Aminotransferase (ALT/SGPT) 15 U/L (3-33) Alkaline Phosphatase 112 U/L (35-104) H Total Creatine Kinase 47 U/L (26-140) C-Reactive Protein, Quantitative 0.7 mg/dL (< 0.5) H Pro-B-Type Natriuretic Peptide 368 pg/mL (0-125) H Total Protein 7.3 g/dL (6.6-8.7) Albumin 3.7 g/dL (3.5-5.2) Globulin 3.6 g/dL Albumin/Globulin Ratio 1.0 (1.0-2.7) Triglycerides Level 107 mg/dL (< 150) Cholesterol Level 193 mg/dL (< 200) LDL Cholesterol 119 mg/dL (60-99) H HDL Cholesterol 53 mg/dL (> 60) Cholesterol/HDL Ratio 3.6 (3.3-4.4) Thyroid Stimulating Hormone (TSH) 0.915 uIU/mL (0.300-4.500) Impression/Recommendations Problems: (1) recurrent R oculomotor nerve pulsy,probably diabrtic mononeuropathy, r/o mass lesion (2) HTN (hypertension) (3) Diabetes Status: stable Recommendations #[id number] MRI orbit/brain ophtalmology BHARGAV Lucia Sep 27, 2016 14:49
[2016-09-27 15:43] VITALS: BP 140/84
[2016-09-27] MEDS ORDERED: NaCl 3% 500ml 250 ML IV ONE (17:00)
[2016-09-27 20:00] VITALS: BP 129/60
[2016-09-28] VITALS: BP 125/60
[2016-09-28] MEDS: Morphine Sulfate 2mg/ml Inj IVP PRN (00:31)
[2016-09-28 04:00] VITALS: BP 142/72
--- NOTE | 2016-09-28 05:30 | Consultation ---
DATE OF CONSULTATION: 09/27/2016 NEUROLOGICAL CONSULTATION CONSULTING PHYSICIAN: Harman Jacobsen M.D. REQUESTING PHYSICIAN: Craig Bobby M.D. HISTORY OF PRESENT ILLNESS: The patient is a 66-year-old female, seen in neurological consultation to evaluate the progressive pain, right eye in the right side of the head. Symptoms started a week ago on Wednesday when she started to develop a slight droop right eye. There was quite significant pain in the retro-orbital region. The pain was spreading to right periorbital temporal area. With this as she was not improving on Wednesday she was seen at emergency room, diagnosed with a right sixth nerve palsy. Her blood sugar was under control and she was discharged home. Since then, she continued to have progressive discomfort in her right eye, right amish, and right side of the head, ptosis in the right eye, and diplopia. In addition, she developed epigastric pain. Family thought that symptoms may relate to the fact that she was under significant stress, as her daughter left this town. She was brought again to emergency room, vital signs on admission, blood pressure 161/77, temperature 97.9, and heart rate of 57. Lab work included normal CBC studies, normal coagulation panel, normal urinalysis except glucose 4+, and chemistry panel with sodium 124, potassium 5.8, and blood sugar of 248, normal liver function, CPK and troponins. She has normal TSH. Mildly abnormal lipids, LDL 119, BNP of 368, and alkaline phosphatase of 112. Elevated hemoglobin A1c of 8.8. Her CRP was 0.7 and sedimentation rate of 24. Chest x-ray obtained revealed no acute cardiopulmonary disease. PAST MEDICAL HISTORY: The patient has a history of right eye ptosis, but no pain, positive for diplopia a year ago. This was treated with eye drops and no steroid and gradually symptoms resolved. The patient has medical history of hypertension, diabetes type 2, obesity, and hyperlipidemia. MEDICATIONS: Treatment prior to admission included insulin, amlodipine, aspirin, carvedilol, Biaxin, Lasix, losartan, Zofran, and tramadol p.r.n. Following admission, she was maintained on IV fluids. SOCIAL HISTORY: The patient lives with her family. No alcohol. No drug abuse. Nonsmoker. FAMILY HISTORY: Noncontributory. REVIEW OF SYMPTOMS: Severe right eye pain, right periorbital, right amish area pain, double vision on a primary position in right gaze. Denies unilateral weakness, numbness, or tingling. No chest pain. No palpitations, but has abdominal epigastric discomfort. PHYSICAL EXAMINATION: GENERAL: A well-developed, morbidly obese female, not in acute distress. VITAL SIGNS: Now stable. Heart rate 56, afebrile, blood pressure 132/70. HEENT: Head, normocephalic. There is no evidence of trauma. There is palpable tenderness in the right orbit. No pain on compression of TMJ area. No percussion, tenderness, zygomatic, or mastoid area. MUSCULOSKELETAL: Unremarkable. There is no deformities. Peripheral pulses 1+ symmetric. MENTAL STATUS: Alert and oriented x3 with no evidence of aphasia or apraxia. Cognitive function normal. The patient speaks broken Mexican and was helpful with translation with her children who were present during this exam. CRANIAL NERVE II: Pupils are 2 mm both responding to light and accommodation. There is a partial right eye ptosis. There is inner gaze palsy of right eye with somewhat limited down gaze movement. Fundi poorly visualized. No hemorrhage noted. CRANIAL NERVE V: Normal corneal responses. There is no palpable tenderness in the trigeminal nerve exit areas. CRANIAL NERVE VII: No facial asymmetry. CRANIAL NERVE VIII: Normal hearing. CRANIAL NERVE IX THROUGH XII: Tongue is in midline. Symmetric palate elevation. MOTOR EXAMINATION: Normal muscle tone. Strength is 5/5 in all extremities. No involuntary movement. Deep tendon reflexes 1+ symmetric with downgoing toes on both sides. SENSORY EXAMINATION: Normal to pinprick and light touch. Gait is stable. IMPRESSION: 1. 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 Rule out retro-orbital lesion. 2. Insulin-dependent diabetes mellitus type 2, poor control. 3. Hypertension. 4. Hyperlipidemia. 5. Morbid obesity. 6. Epigastric pain. 7. Hyponatremia. RECOMMENDATION: 1. Stat MRI of the brain and orbit with and without contrast. 2. Ophthalmology assessment. 3. Maintain strict blood pressure and blood sugar control. 4. [place] 5 mg q.4 hours p.r.n. for severe pain. DISCUSSION: The patient has no evidence of temporal arteritis and no evidence of trigeminal neuralgia. This neurological findings consist of a third nerve palsy, which is recurrent. Due to severity and progression of headache as well as retro-orbital pain, we will need to rule out a retro-orbital mass lesion. We will obtain MRI of the brain and orbits. The patient will need a pupil dilation with proper examination funduscopic as per appliance mechanic. At this time, visual acuity appears equal in both eyes. She was checked for glaucoma, which was a negative study three days ago. Thank you for allowing me to see this interesting patient in neurological consultation. Harman Jacobsen M.D. DR: RAY JOB#: [id number] CC:
[2016-09-28] MEDS: NovoLOG Insulin Flexpen SUBQ SCH ×4 (06:05→21:00)
[2016-09-28 08:00] VITALS: BP 154/76
[2016-09-28] MEDS: Carvedilol 6.25mg Tab ORAL SCH ×2 (09:14→20:56)
[2016-09-28] MEDS: Aspirin EC 81mg tab ORAL SCH (09:14)
[2016-09-28] MEDS: Losartan 50mg tab ORAL SCH (09:15)
[2016-09-28] MEDS: Heparin 5000 units/ml inj SUBQ SCH ×2 (09:19→20:58)
[2016-09-28] MEDS: Levemir Flexpen SUBQ SCH ×2 (09:34→20:59)
[2016-09-28 10:16] LABS: EOSINOPHILS % (AUTO) 0.5 % (0.0-3.0); LYMPHOCYTES % (AUTO) 29.4 % (20.0-45.0); MEAN CORPUSCULAR HEMOGLOBIN 27.6 PG (27.0-31.0); MEAN CORPUSCULAR HGB CONC 32.9 G/DL (32.0-36.0); MEAN CORPUSCULAR VOLUME 84 FL (80-99); MEAN PLATELET VOLUME 7.4 FL (6.5-10.1); MONOCYTES % (AUTO) 5.6 % (1.0-10.0); NEUTROPHILS % (AUTO) 63.5 % (45.0-75.0); PLATELET COUNT 240 K/UL (150-450); RED BLOOD COUNT 5.44 M/UL (4.20-5.40); RED CELL DISTRIBUTION WIDTH 13.8 % (11.6-14.8); WHITE BLOOD COUNT 8.5 K/UL (4.8-10.8)
--- NOTE | 2016-09-28 10:22 | General Progress Note ---
Assessment/Plan Status: stable - from renal stand Assessment/Plan Status; HypoNatremia- resolved Obese- DM HTN right eye nerve palsy Plan; as is labs reviewed adjust Levemir dose Subjective ROS Limited/Unobtainable: No Constitutional: Reports: malaise Allergies: Coded Allergies: No Known Allergies (Unverified , 09/12/15) Objective Last 24 Hour Vital Signs Date Time Temp Pulse Resp B/P Pulse Ox O2 Delivery O2 Flow Rate FiO2 09/28/16 09:15 154/76 09/28/16 09:14 63 154/76 09/28/16 09:14 63 154/76 09/28/16 08:07 61 16 Room Air 21 09/28/16 08:00 97.3 63 18 154/76 99 Room Air 09/28/16 04:00 98.2 55 20 142/72 97 Room Air 09/28/16 00:00 97.7 57 20 125/60 94 Room Air 09/27/16 20:24 51 129/60 09/27/16 20:00 97.7 51 20 129/60 100 Room Air 09/27/16 19:30 54 16 Room Air 21 09/27/16 15:43 97.6 56 19 140/84 96 Room Air 09/27/16 11:34 98.2 56 19 138/70 97 Room Air Intake and Output 09/27/16 09/28/16 19:00 07:00 Intake Total 620 ml Balance 620 ml Intake Oral 620 ml # Voids 4 2 Laboratory Tests 09/28/16 09:40: White Blood Count [Pending], Red Blood Count [Pending], Hemoglobin [Pending], Hematocrit [Pending], Mean Corpuscular Volume [Pending], Mean Corpuscular Hemoglobin [Pending], Mean Corpuscular Hemoglobin Concent [Pending], Red Cell Distribution Width [Pending], Platelet Count [Pending], Mean Platelet Volume [ Pending], Neutrophils (%) (Auto) [Pending], Lymphocytes (%) (Auto) [Pending], Monocytes (%) (Auto) [Pending], Eosinophils (%) (Auto) [Pending], Basophils (%) (Auto) [Pending], Sodium Level [Pending], Potassium Level [Pending], Chloride Level [Pending], Carbon Dioxide Level [Pending], Blood Urea Nitrogen [Pending], Creatinine [Pending], Estimat Glomerular Filtration Rate [Pending], Glucose Level [Pending], Calcium Level [Pending] Height (Feet): 5 Height (Inches): 6.40 Weight (Pounds): 180 General Appearance: no apparent distress Cardiovascular: regular rhythm Respiratory/Chest: decreased breath sounds Abdomen: other - obese Objective obese no change in PE SELIN VASQUEZ Sep 28, 2016 10:22
[2016-09-28 10:32] LABS: ANION GAP 13 (5-15); CALCIUM 9.3 mg/dL (8.6-10.2); CARBON DIOXIDE 26 mEQ/L (20-30); CHLORIDE 95 mEQ/L (98-107); CREATININE 0.6 mg/dL (0.5-0.9); GLOMERULAR FILTRATION RATE > 60 mL/min (>60); HEMOLYSIS 11; POTASSIUM 3.7 mEQ/L (3.4-4.9); SODIUM 134 mEQ/L (135-145)
[2016-09-28 12:00] VITALS: BP 147/77
--- NOTE | 2016-09-28 12:53 | Neurology Progress Note ---
Interim History Interim History ROS Limited/Unobtainable: No Complaints: severe pain R eye Events: same Objective Physical Exam Last Vital Signs Date Time Temp Pulse Resp B/P Pulse Ox O2 Delivery O2 Flow Rate FiO2 09/28/16 09:15 154/76 09/28/16 09:14 63 09/28/16 08:07 16 Room Air 21 09/28/16 08:00 97.3 99 Laboratory Tests Test 09/28/16 09:40 White Blood Count 8.5 K/UL (4.8-10.8) Red Blood Count 5.44 M/UL (4.20-5.40) H Hemoglobin 15.0 G/DL (12.0-16.0) Hematocrit 45.7 % (37.0-47.0) Mean Corpuscular Volume 84 FL (80-99) Mean Corpuscular Hemoglobin 27.6 PG (27.0-31.0) Mean Corpuscular Hemoglobin Concent 32.9 G/DL (32.0-36.0) Red Cell Distribution Width 13.8 % (11.6-14.8) Platelet Count 240 K/UL (150-450) Mean Platelet Volume 7.4 FL (6.5-10.1) Neutrophils (%) (Auto) 63.5 % (45.0-75.0) Lymphocytes (%) (Auto) 29.4 % (20.0-45.0) Monocytes (%) (Auto) 5.6 % (1.0-10.0) Eosinophils (%) (Auto) 0.5 % (0.0-3.0) Basophils (%) (Auto) 1.0 % (0.0-2.0) Sodium Level 134 mEQ/L (135-145) L Potassium Level 3.7 mEQ/L (3.4-4.9) Chloride Level 95 mEQ/L (98-107) L Carbon Dioxide Level 26 mEQ/L (20-30) Anion Gap 13 (5-15) Blood Urea Nitrogen 12 mg/dL (7-23) Creatinine 0.6 mg/dL (0.5-0.9) Estimat Glomerular Filtration Rate > 60 mL/min (>60) Glucose Level 267 mg/dL (74-106) H Calcium Level 9.3 mg/dL (8.6-10.2) General: other - obese tender OD Head: normocophalic, atraumatic Neck: no rigidity Neurologic Exam Mental Status: awake, alert, oriented x4, normal cognition, good mathematical skills, normal recent memory, normal remote memory, preserved visuospatial function Speech: normal speech, no dysarthia Language: normal language, no aphasia Cranial Nerve II: fundus normal, visual kelsey, no papilledema Cranial Nerves III, IV, : other - OD ptosis, EOMI limited R eye c/w ophtalmoplegia most Cn3 Cranial Nerve V: normal facial sensations, temporales function normal, masseters function normal, pterygoids function normal Cranial Nerve VII: no facial asymmetry, normal facial expressions Cranial Nerve VIII: normal hearing, no nystagmus Cranial Nerve IX: normal palate elevation, gag response Cranial Nerve X: no voice hoarseness Cranial Nerve XI: SCM symmetric, trapezii function normal Cranial Nerve XII: tongue midline, no tongue atrophy/fasciculations Motor System: normal muscle tone, strength 5/5, no involuntary movement, no muscle wasting Sensory: normal pinprick, normal light touch, normal position sense, normal graphesthesia Coordination: normal finger to nose bilaterally, normal heel to golden bilaterally, negative Romberg test Deep Tendon Reflexes: 0 ankle (L), 0 ankle (R), 0 bicep (L), 0 bicep (R), 0 brachioradialis (L), 0 brachioradialis (R), 0 knee (L), 0 knee (R), 0 tricep (L) , 0 tricep (R) Stance: normal Gait: heel + toe gait Impression/Recommendations Problems: (1) Right sided ophtalmoplegia , most CN3, painful (2) HTN (hypertension) (3) Diabetes Status: stable - from renal stand Recommendations #[id number] MRI orbit/brainm pen ophtalmology eval strict DM control norco 5mg BHARGAV Negron Sep 28, 2016 12:53
--- NOTE | 2016-09-28 16:34 | GI Initial Consult Note ---
History of Present Illness General Date patient seen: Sep 28, 2016 Time patient seen: 11:00 Reason for Hospitalization: Abdominal Pain Referring physician: FERNANDA WALSH Reason for Consultation: CONSTIPATION Present Illness HPI Patient seen 2 days ago with similar complaints. 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 She is a diabetic. This happened to her a year ago. She also had a headache at that time it was resolved with Reglan, Benadryl and aspirin. She states the headache is now severe. It's right-sided she feels in her eye. She also states that this is connected with nausea and some abdominal discomfort. Has nausea but no vomiting. She denies any fevers. A CT was performed 2 days ago here and was normal. Denies fever. Pain is 9/ 10 constant, sharp and pounding more R side of head and radiating to back of head, not to neck. Never checked for glaucoma. One year ago she was diagnosed her with sinusitis with similar complaints. When she went to [facility] she was told that she had the sixth nerve palsy. Without treated with steroids at that time. He got better on its own but took several months. When here 2 days ago, she was discussed with Dr. Jacobsen. Her sugars have been fairly well regulated. GI Consult. HPI as noted above. GI consulted for abdominal pain/constipation. Pt seen on floor, awake NAD with no active s/sx of N/V/D. C/o of some Nausea with abdominal discomfort. Per RN, patient is also constipated as well. Pt presents today with reports of constipation and elevated alkaline phosphatase. Unknown history of endoscopic procedures. Home Meds Active Scripts Ondansetron Odt* (ZOFRAN ODT*) 4 Mg Tab.rapdis, 4 MG ORAL Q8HR Y for Nausea & Vomiting, #6 TAB 1 Refill Prov:Bennie Spears M.D. 09/23/16 Tramadol Hcl* (ULTRAM*) 50 Mg Tablet, 50 MG ORAL Q6H Y for For Pain, #10 TAB 0 Refills Prov:Bennie Spears M.D. 09/23/16 Ibuprofen* (MOTRIN*) 600 Mg Tablet, 600 MG ORAL Q1HR Y for For Pain, #20 TAB Prov:FERNANDA HANEY.OJessica 09/12/15 Clarithromycin* (BIAXIN*) 250 Mg Tablet, 500 MG ORAL TWICE A DAY for 10 Days, TAB Prov:FERNANDA HANEY D.O. 09/12/15 Reported Medications Amlodipine Besylate* (AMLODIPINE BESYLATE*) 10 Mg Tablet, 10 MG ORAL DAILY, TAB 09/25/16 Aspirin* (ASPIR 81*) 81 Mg Tablet.dr, 81 MG ORAL DAILY, TAB 09/25/16 Furosemide* (LASIX*) 20 Mg Tablet, 20 MG ORAL DAILY, TAB 09/25/16 Losartan Potassium* (LOSARTAN POTASSIUM*) 50 Mg Tablet, 100 MG ORAL DAILY, TAB 09/25/16 Carvedilol* (CARVEDILOL*) 6.25 Mg Tablet, 6.25 MG ORAL EVERY 12 HOURS, TAB 09/25/16 Hum Insulin Nph/Reg Insulin Hm (NOVOLIN 70-30 100 UNIT/ML VIAL) 100 Unit/1 Ml Vial, 18 SUBQ DAILY, VIAL 09/25/16 Hum Insulin Nph/Reg Insulin Hm (NOVOLIN 70-30 100 UNIT/ML VIAL) 100 Unit/1 Ml Vial, 36 SUBQ DAILY, VIAL 09/25/16 Hum Insulin Nph/Reg Insulin Hm (NOVOLIN 70-30 100 UNIT/ML VIAL) 100 Unit/1 Ml Vial, 0 SUBQ, VIAL 09/25/16 Med list reviewed/reconciled: Yes Allergies: Coded Allergies: No Known Allergies (Unverified , 09/12/15) Patient History History Provided By: Patient, Medical Record PMH Narrative Past Medical History: see triage record Social History: Denies: alcohol use, drug use, smoking Social History Narrative with son - from [facility] Now: No Reviewed Nursing Documentation: PMH: Agreed, PSxH: Agreed Nursing Documentation-PMH Hx Hypertension: Yes Hx Diabetes: Yes Social History: Denies: alcohol use, drug use, other, smoking Review of Systems All Other Systems: negative except mentioned in HPI Physical Exam Vital Signs Date Time Temp Pulse Resp B/P Pulse Ox O2 Delivery O2 Flow Rate FiO2 09/25/16 23:02 97.9 57 20 161/77 96 09/26/16 05:43 Room Air 09/27/16 19:30 21 Sp02 EP Interpretation: reviewed Labs Laboratory Tests Test 09/28/16 09:40 White Blood Count 8.5 K/UL (4.8-10.8) Red Blood Count 5.44 M/UL (4.20-5.40) H Hemoglobin 15.0 G/DL (12.0-16.0) Hematocrit 45.7 % (37.0-47.0) Mean Corpuscular Volume 84 FL (80-99) Mean Corpuscular Hemoglobin 27.6 PG (27.0-31.0) Mean Corpuscular Hemoglobin Concent 32.9 G/DL (32.0-36.0) Red Cell Distribution Width 13.8 % (11.6-14.8) Platelet Count 240 K/UL (150-450) Mean Platelet Volume 7.4 FL (6.5-10.1) Neutrophils (%) (Auto) 63.5 % (45.0-75.0) Lymphocytes (%) (Auto) 29.4 % (20.0-45.0) Monocytes (%) (Auto) 5.6 % (1.0-10.0) Eosinophils (%) (Auto) 0.5 % (0.0-3.0) Basophils (%) (Auto) 1.0 % (0.0-2.0) Sodium Level 134 mEQ/L (135-145) L Potassium Level 3.7 mEQ/L (3.4-4.9) Chloride Level 95 mEQ/L (98-107) L Carbon Dioxide Level 26 mEQ/L (20-30) Anion Gap 13 (5-15) Blood Urea Nitrogen 12 mg/dL (7-23) Creatinine 0.6 mg/dL (0.5-0.9) Estimat Glomerular Filtration Rate > 60 mL/min (>60) Glucose Level 267 mg/dL (74-106) H Calcium Level 9.3 mg/dL (8.6-10.2) General Appearance: well appearing, no apparent distress, alert EENT: PERRL/EOMI Neck: supple Respiratory: no respiratory distress Cardiovascular: normal rate Gastrointestinal: normal inspection, non tender, soft, normal bowel sounds Rectal: deferred Genitourinary: normal inspection Musculoskeletal: back normal Neurologic: normal inspection, alert, oriented x3, responsive Psychiatric: normal inspection, judgement/insight normal, memory normal Skin: normal inspection, normal color, no rash, warm/dry, palpation normal Lymphatic: normal inspection, no adenopathy Current Medications Current Medications Medications (Trade) Dose Ordered Sig/Reid Route PRN Reason Start Time Stop Time Status Last Admin Dose Admin Acetaminophen (Tylenol) 650 mg Q4H PRN ORAL fever 09/26/16 16:45 10/26/16 16:44 Acetaminophen/ Hydrocodone Bitart ([place] 5/325) 1 tab Q3H PRN ORAL Mild Pain (Pain Scale 1-3) 09/27/16 14:45 10/04/16 14:44 Albuterol/ Ipratropium (DuoNeb 0.5-3(2.5)mg/3ml) 3 ml Q6H PRN HHN dyspnea 09/26/16 16:45 10/01/16 16:44 Amlodipine Besylate (Norvasc) 10 mg DAILY ORAL 09/27/16 09:00 10/27/16 08:59 09/28/16 09:14 Aspirin (Ecotrin) 81 mg DAILY ORAL 09/27/16 09:00 10/27/16 08:59 09/28/16 09:14 Atorvastatin Calcium (Lipitor) 10 mg BEDTIME ORAL 09/27/16 21:00 10/27/16 20:59 09/27/16 20:25 Carvedilol (Coreg) 6.25 mg EVERY 12 HOURS ORAL 09/26/16 21:00 10/26/16 20:59 09/28/16 09:14 Clonidine HCl (Catapres) 0.1 mg Q4H PRN ORAL SBP > 160 09/26/16 16:45 10/26/16 16:44 09/26/16 20:28 Dextrose (Dextrose 50%) STAT PRN IV Hypoglycemia 09/26/16 16:45 10/26/16 16:44 Heparin Sodium (Porcine) (Heparin 5000 units/ml) 5,000 units EVERY 12 HOURS SUBQ 09/26/16 21:00 10/26/16 20:59 09/28/16 09:19 Insulin Aspart (NovoLOG) BEFORE MEALS AND HS SUBQ 09/26/16 17:30 10/26/16 17:29 09/28/16 12:32 Insulin Detemir (Levemir) 15 units Q12HR SUBQ 09/28/16 21:00 10/28/16 20:59 Losartan Potassium (Cozaar) 100 mg DAILY ORAL 09/27/16 09:00 10/27/16 08:59 09/28/16 09:15 Morphine Sulfate (Morphine Sulfate) 1 mg Q4H PRN IVP For Pain 4-10 09/26/16 16:45 10/03/16 16:44 09/28/16 00:31 Ondansetron HCl (Zofran) 4 mg Q6H PRN IVP Nausea & Vomiting 09/26/16 16:45 10/26/16 16:44 Pantoprazole (Protonix) 40 mg DAILY ORAL 09/27/16 09:00 10/27/16 08:59 09/28/16 09:14 Polyethylene Glycol (Miralax) 17 gm HSPRN PRN ORAL Constipation 09/26/16 16:45 10/26/16 16:44 09/27/16 12:57 Zolpidem Tartrate (Ambien) 5 mg HSPRN PRN ORAL Insomnia 09/26/16 16:45 10/26/16 16:44 GI: Plan Problems: (1) Constipation (2) Nausea (3) Diabetes (4) GERD (gastroesophageal reflux disease) Plan symptomatic treatment at this time zofran prn, consider reglan if patient has persistent vomiting bowel regime >> miralax + colace, dulcolax x 1 electrolyte replacement fu labs DM management outpatient GI colonoscopy Discussed with Dr. Chung. Thank you for referring this patient, we will follow. Ro Ortiz N.P. Sep 28, 2016 16:34
--- NOTE | 2016-09-28 17:02 | Diagnostic Imaging Report ---
Indication: Diplopia. Pain in the right eye with a drooping lid. Technique: MRI of the orbits performed in a 1.5 Susy magnet. Sequences done in conjunction with MRI of the brain. Coronal and axial T2 fast spin-echo and coronal and axial post gadolinium T1 fast spin-echo. Comparison: None Findings: The optic nerves appear symmetric without evidence of abnormal enhancement or enlargement from the globes to the optic chiasm. The orbital fat is normal and well preserved. The extraocular muscles are unremarkable. The globes are unremarkable. The area of the sella is unremarkable. The cavernous sinus enhances normally. The flow-void seen within the intracranial portions of both internal carotid arteries. There is a moderate degree of mucosal thickening within portions of the paranasal sinuses especially the sphenoid sinus consistent with sinusitis. There is a 1.4 x 3.0 x 1.5 cm CSF intensity focus anterior to the temporal tip in the left middle cranial fossa. This is consistent with an arachnoid cyst. Impression: Negative MRI of the orbits. No evidence of optic neuritis. 1.4 x 3 x 1.5 cm left middle cranial fossa arachnoid cyst. Moderate sinusitis
[2016-09-28] MEDS: Docusate 100mg cap ORAL SCH (18:46)
[2016-09-28 20:00] VITALS: BP 156/72
[2016-09-28] MEDS ORDERED: Miralax 17gm pkt ORAL SCH (21:00)
[2016-09-28] MEDS: Norco 5mg/325mg tab ORAL PRN (23:02)
[2016-09-29] VITALS: BP 151/73
[2016-09-29] MEDS ORDERED: HYDROmorphone 1mg/ml Carpuject IVP PRN (01:00)
[2016-09-29 04:00] VITALS: BP 150/78
[2016-09-29] MEDS: NovoLOG Insulin Flexpen SUBQ SCH ×2 (06:20→12:25)
[2016-09-29 07:28] LABS: BASOPHILS % (AUTO) 0.8 % (0.0-2.0); EOSINOPHILS % (AUTO) 0.4 % (0.0-3.0); LYMPHOCYTES % (AUTO) 30.8 % (20.0-45.0); MEAN CORPUSCULAR HGB CONC 33.6 G/DL (32.0-36.0); MEAN CORPUSCULAR VOLUME 83 FL (80-99); MEAN PLATELET VOLUME 6.8 FL (6.5-10.1); PLATELET COUNT 298 K/UL (150-450); RED BLOOD COUNT 5.56 M/UL (4.20-5.40); RED CELL DISTRIBUTION WIDTH 14.2 % (11.6-14.8); WHITE BLOOD COUNT 9.2 K/UL (4.8-10.8)
[2016-09-29 07:47] LABS: ANION GAP 12 (5-15); CALCIUM 9.4 mg/dL (8.6-10.2); CARBON DIOXIDE 29 mEQ/L (20-30); CHLORIDE 96 mEQ/L (98-107); CREATININE 0.7 mg/dL (0.5-0.9); GLOMERULAR FILTRATION RATE > 60 mL/min (>60); HEMOLYSIS 2; SODIUM 137 mEQ/L (135-145)
[2016-09-29 08:00] VITALS: BP 144/68
[2016-09-29] MEDS: Aspirin EC 81mg tab ORAL SCH (08:07)
[2016-09-29] MEDS: Losartan 50mg tab ORAL SCH (08:08)
[2016-09-29] MEDS: Carvedilol 6.25mg Tab ORAL SCH (08:08)
[2016-09-29] MEDS: Docusate 100mg cap ORAL SCH ×2 (08:09→12:30)
[2016-09-29] MEDS: Norco 5mg/325mg tab ORAL PRN (08:10)
[2016-09-29] MEDS: Levemir Flexpen SUBQ SCH (08:14)
[2016-09-29] MEDS: Heparin 5000 units/ml inj SUBQ SCH (08:15)
--- NOTE | 2016-09-29 08:25 | Diagnostic Imaging Report ---
Indication: Headache. Diplopia Technique: The head was imaged in a 1.5 Susy magnet. Sequences obtained include sagittal and axial T1 FLAIR, axial T2 fast spin echo with fat saturation, axial T2 FLAIR, diffusion and ADC map. Gadolinium-enhanced axial and coronal T1 FLAIR obtained also. Comparison: None Findings: The size, contour, and configuration of the sulci, ventricles, and basal cisterns appear normal. Castle-white differentiation is normal. Minimal. Jugular T2 hyperintense signal noted. This is nonspecific. There is no restricted diffusion. There is no mass effect, midline shift, edema, or hemorrhage. There are no abnormal extra-axial or intra-axial fluid collections. The corpus callosum is unremarkable. The brainstem and cerebellum are unremarkable. The sella is unremarkable. Bone marrow signal within the visualized osseous structures appears age appropriate and unremarkable otherwise. No abnormal enhancement is identified. Impression: Minimal nonspecific periventricular abnormal signal. This could be due to chronic small vessel disease. Negative examination otherwise.
--- NOTE | 2016-09-29 11:55 | General Progress Note ---
Assessment/Plan Status: stable Assessment/Plan Status; HypoNatremia- resolved Obese- DM HTN right eye nerve palsy Plan; as is labs reviewed adjust Levemir dose ? DC Subjective ROS Limited/Unobtainable: No Constitutional: Reports: malaise Allergies: Coded Allergies: No Known Allergies (Unverified , 09/12/15) Objective Last 24 Hour Vital Signs Date Time Temp Pulse Resp B/P Pulse Ox O2 Delivery O2 Flow Rate FiO2 09/29/16 08:08 144/84 09/29/16 08:08 60 144/84 09/29/16 08:07 60 144/84 09/29/16 08:00 98.0 60 18 144/68 100 Room Air 09/29/16 07:50 59 16 Room Air 21 09/29/16 04:00 97.5 52 20 150/78 96 Room Air 09/29/16 00:00 97.5 57 20 151/73 97 Room Air 09/28/16 20:56 64 152/72 09/28/16 20:00 98.1 64 20 156/72 97 Room Air 09/28/16 19:06 67 16 Room Air 21 09/28/16 12:00 97.2 58 18 147/77 99 Room Air Intake and Output 09/28/16 09/29/16 19:00 07:00 Intake Total 860 ml Balance 860 ml Intake Oral 860 ml # Voids 5 4 # Bowel Movements 1 Laboratory Tests 09/29/16 06:50: White Blood Count 9.2, Red Blood Count 5.56H, Hemoglobin 15.5, Hematocrit 46.2, Mean Corpuscular Volume 83, Mean Corpuscular Hemoglobin 28.0, Mean Corpuscular Hemoglobin Concent 33.6, Red Cell Distribution Width 14.2, Platelet Count 298, Mean Platelet Volume 6.8, Neutrophils (%) (Auto) 63.0, Lymphocytes (%) (Auto) 30.8, Monocytes (%) (Auto) 5.0, Eosinophils (%) (Auto) 0.4, Basophils (%) (Auto ) 0.8, Sodium Level 137, Potassium Level 4.0, Chloride Level 96L, Carbon Dioxide Level 29, Anion Gap 12, Blood Urea Nitrogen 14, Creatinine 0.7, Estimat Glomerular Filtration Rate > 60, Glucose Level 214H, Calcium Level 9.4 Height (Feet): 5 Height (Inches): 6.40 Weight (Pounds): 180 General Appearance: no apparent distress Objective obese no change in PE SELIN VASQUEZ Sep 29, 2016 11:55
[2016-09-29 12:00] VITALS: BP 145/61
--- NOTE | 2016-09-29 13:20 | GI Progress Note ---
Assessment/Plan Problems: (1) Nausea ICD Codes: R11.0 - Nausea SNOMED: 220186530 (2) Constipation ICD Codes: K59.00 - Constipation, unspecified SNOMED: 71572704 (3) Diabetes ICD Codes: E11.9 - Type 2 diabetes mellitus without complications SNOMED: 24271101 Qualifiers: Qualified Codes: E11.8 - Type 2 diabetes mellitus with unspecified complications; Z79.4 - predatory animal exterminator (current) use of insulin (4) GERD (gastroesophageal reflux disease) ICD Codes: K21.9 - Gastro-esophageal reflux disease without esophagitis SNOMED: 467646280 Status: stable Status Narrative Discussed with Dr. Chung. Assessment/Plan ok for DC per GI standpoint symptomatic treatment at this time zofran prn, consider reglan if patient has persistent vomiting bowel regime >> miralax + colace, dulcolax x 1 electrolyte replacement fu labs DM management outpatient GI colonoscopy Subjective Subjective had BM yesterday feels over all better Objective Last 24 Hour Vital Signs Date Time Temp Pulse Resp B/P Pulse Ox O2 Delivery O2 Flow Rate FiO2 09/29/16 12:00 97.0 53 18 145/61 100 Room Air 09/29/16 08:08 144/84 09/29/16 08:08 60 144/84 09/29/16 08:07 60 144/84 09/29/16 08:00 98.0 60 18 144/68 100 Room Air 09/29/16 07:50 59 16 Room Air 21 09/29/16 04:00 97.5 52 20 150/78 96 Room Air 09/29/16 00:00 97.5 57 20 151/73 97 Room Air 09/28/16 20:56 64 152/72 09/28/16 20:00 98.1 64 20 156/72 97 Room Air 09/28/16 19:06 67 16 Room Air 21 Intake and Output 09/28/16 09/29/16 19:00 07:00 Intake Total 860 ml Balance 860 ml Intake Oral 860 ml # Voids 5 4 # Bowel Movements 1 Laboratory Tests Test 09/29/16 06:50 White Blood Count 9.2 K/UL (4.8-10.8) Red Blood Count 5.56 M/UL (4.20-5.40) H Hemoglobin 15.5 G/DL (12.0-16.0) Hematocrit 46.2 % (37.0-47.0) Mean Corpuscular Volume 83 FL (80-99) Mean Corpuscular Hemoglobin 28.0 PG (27.0-31.0) Mean Corpuscular Hemoglobin Concent 33.6 G/DL (32.0-36.0) Red Cell Distribution Width 14.2 % (11.6-14.8) Platelet Count 298 K/UL (150-450) Mean Platelet Volume 6.8 FL (6.5-10.1) Neutrophils (%) (Auto) 63.0 % (45.0-75.0) Lymphocytes (%) (Auto) 30.8 % (20.0-45.0) Monocytes (%) (Auto) 5.0 % (1.0-10.0) Eosinophils (%) (Auto) 0.4 % (0.0-3.0) Basophils (%) (Auto) 0.8 % (0.0-2.0) Sodium Level 137 mEQ/L (135-145) Potassium Level 4.0 mEQ/L (3.4-4.9) Chloride Level 96 mEQ/L (98-107) L Carbon Dioxide Level 29 mEQ/L (20-30) Anion Gap 12 (5-15) Blood Urea Nitrogen 14 mg/dL (7-23) Creatinine 0.7 mg/dL (0.5-0.9) Estimat Glomerular Filtration Rate > 60 mL/min (>60) Glucose Level 214 mg/dL (74-106) H Calcium Level 9.4 mg/dL (8.6-10.2) Height (Feet): 5 Height (Inches): 6.40 Weight (Pounds): 180 General Appearance: no apparent distress, alert, obese Cardiovascular: normal rate Respiratory/Chest: normal breath sounds, no respiratory distress Abdominal Exam: normal bowel sounds, non tender, soft Extremities: normal range of motion Ro Ortiz N.P. Sep 29, 2016 13:20
--- NOTE | 2016-09-29 13:53 | Neurology Progress Note ---
Interim History Interim History ROS Limited/Unobtainable: No Complaints: severe pain R eye Events: same Objective Physical Exam Last Vital Signs Date Time Temp Pulse Resp B/P Pulse Ox O2 Delivery O2 Flow Rate FiO2 09/29/16 12:00 97.0 53 18 145/61 100 Room Air 09/29/16 07:50 21 Laboratory Tests Test 09/29/16 06:50 White Blood Count 9.2 K/UL (4.8-10.8) Red Blood Count 5.56 M/UL (4.20-5.40) H Hemoglobin 15.5 G/DL (12.0-16.0) Hematocrit 46.2 % (37.0-47.0) Mean Corpuscular Volume 83 FL (80-99) Mean Corpuscular Hemoglobin 28.0 PG (27.0-31.0) Mean Corpuscular Hemoglobin Concent 33.6 G/DL (32.0-36.0) Red Cell Distribution Width 14.2 % (11.6-14.8) Platelet Count 298 K/UL (150-450) Mean Platelet Volume 6.8 FL (6.5-10.1) Neutrophils (%) (Auto) 63.0 % (45.0-75.0) Lymphocytes (%) (Auto) 30.8 % (20.0-45.0) Monocytes (%) (Auto) 5.0 % (1.0-10.0) Eosinophils (%) (Auto) 0.4 % (0.0-3.0) Basophils (%) (Auto) 0.8 % (0.0-2.0) Sodium Level 137 mEQ/L (135-145) Potassium Level 4.0 mEQ/L (3.4-4.9) Chloride Level 96 mEQ/L (98-107) L Carbon Dioxide Level 29 mEQ/L (20-30) Anion Gap 12 (5-15) Blood Urea Nitrogen 14 mg/dL (7-23) Creatinine 0.7 mg/dL (0.5-0.9) Estimat Glomerular Filtration Rate > 60 mL/min (>60) Glucose Level 214 mg/dL (74-106) H Calcium Level 9.4 mg/dL (8.6-10.2) General: other - obese tender OD Head: normocophalic, atraumatic Neck: no rigidity Neurologic Exam Mental Status: awake, alert, oriented x4, normal cognition, good mathematical skills, normal recent memory, normal remote memory, preserved visuospatial function Speech: normal speech, no dysarthia Language: normal language, no aphasia Cranial Nerve II: fundus normal, visual kelsey, no papilledema Cranial Nerves III, IV, : other - OD ptosis, EOMI limited R eye c/w ophtalmoplegia most Cn3 Cranial Nerve V: normal facial sensations, temporales function normal, masseters function normal, pterygoids function normal Cranial Nerve VII: no facial asymmetry, normal facial expressions Cranial Nerve VIII: normal hearing, no nystagmus Cranial Nerve IX: normal palate elevation, gag response Cranial Nerve X: no voice hoarseness Cranial Nerve XI: SCM symmetric, trapezii function normal Cranial Nerve XII: tongue midline, no tongue atrophy/fasciculations Motor System: normal muscle tone, strength 5/5, no involuntary movement, no muscle wasting Sensory: normal pinprick, normal light touch, normal position sense, normal graphesthesia Coordination: normal finger to nose bilaterally, normal heel to golden bilaterally, negative Romberg test Deep Tendon Reflexes: 0 ankle (L), 0 ankle (R), 0 bicep (L), 0 bicep (R), 0 brachioradialis (L), 0 brachioradialis (R), 0 knee (L), 0 knee (R), 0 tricep (L) , 0 tricep (R) Stance: normal Gait: heel + toe gait Impression/Recommendations Problems: (1) Right sided ophtalmoplegia , most CN3, painful (2) HTN (hypertension) (3) Diabetes Status: stable Recommendations #[id number] MRI orbit/brainm noted ophtalmology eval outpt strict DM control !! norco 5mg prn vit B complex local cold steroid use if strict montoring available. BHARGAV NORMAN Sep 29, 2016 13:53
[2016-09-29] MEDS ORDERED: NORCO 5-325 TA1 EAC1 ORAL (14:23)
--- NOTE | 2016-09-29 16:07 | Pulmonology Progress Note ---
Assessment/Plan Problems: (1) Right sided ophtalmoplegia , most CN3, painful (2) Headache (3) GERD (gastroesophageal reflux disease) (4) HTN (hypertension) Assessment/Plan MRI negative dc with close f/u with ophthalmology as outpatient Subjective ROS Limited/Unobtainable: No Constitutional: Reports: no symptoms HEENT: Repors: no symptoms Allergies: Coded Allergies: No Known Allergies (Unverified , 09/12/15) Objective Last 24 Hour Vital Signs Date Time Temp Pulse Resp B/P Pulse Ox O2 Delivery O2 Flow Rate FiO2 09/29/16 12:00 97.0 53 18 145/61 100 Room Air 09/29/16 08:08 144/84 09/29/16 08:08 60 144/84 09/29/16 08:07 60 144/84 09/29/16 08:00 98.0 60 18 144/68 100 Room Air 09/29/16 07:50 59 16 Room Air 21 09/29/16 04:00 97.5 52 20 150/78 96 Room Air 09/29/16 00:00 97.5 57 20 151/73 97 Room Air 09/28/16 20:56 64 152/72 09/28/16 20:00 98.1 64 20 156/72 97 Room Air 09/28/16 19:06 67 16 Room Air 21 Intake and Output 09/28/16 09/29/16 19:00 07:00 Intake Total 860 ml Balance 860 ml Intake Oral 860 ml # Voids 5 4 # Bowel Movements 1 General Appearance: WD/WN, no acute distress HEENT: normocephalic, atraumatic Respiratory/Chest: chest wall non-tender, lungs clear Breasts: no masses Cardiovascular: normal peripheral pulses Abdomen: normal bowel sounds, soft, non tender Genitourinary: normal external genitalia Extremities: no clubbing Skin: no rash, no lesions Laboratory Tests 09/29/16 06:50: White Blood Count 9.2, Red Blood Count 5.56H, Hemoglobin 15.5, Hematocrit 46.2, Mean Corpuscular Volume 83, Mean Corpuscular Hemoglobin 28.0, Mean Corpuscular Hemoglobin Concent 33.6, Red Cell Distribution Width 14.2, Platelet Count 298, Mean Platelet Volume 6.8, Neutrophils (%) (Auto) 63.0, Lymphocytes (%) (Auto) 30.8, Monocytes (%) (Auto) 5.0, Eosinophils (%) (Auto) 0.4, Basophils (%) (Auto ) 0.8, Sodium Level 137, Potassium Level 4.0, Chloride Level 96L, Carbon Dioxide Level 29, Anion Gap 12, Blood Urea Nitrogen 14, Creatinine 0.7, Estimat Glomerular Filtration Rate > 60, Glucose Level 214H, Calcium Level 9.4 SURESH DAVIS Sep 29, 2016 16:07
[2016-09-29] MEDS ORDERED: Levemir Flexpen SUBQ SCH (21:00)
--- NOTE | 2016-09-30 17:20 | Cardiology Report ---
APPROVED REPORT EKG Measurement Heart [id number] 194P68 [id number] Sinus bradycardia Otherwise normal ECG
--- NOTE | 2016-10-01 18:23 | Discharge Summary ---
Discharge Summary Hospital Course Date of Admission Sep 26, 2016 at 03:09 Date of Discharge Sep 29, 2016 at 15:29 Admitting Diagnosis hyponatremia HPI Kymberly Linares is a 56 year old female who was admitted on Sep 26, 2016 at 03 :09 for Hyponatremia Hospital Course [id number] Discharge Discharge Disposition Patient was discharged to Home (01) Discharge Diagnoses: Yany Newman NP Oct 01, 2016 18:23
--- NOTE | 2016-10-01 22:31 | Discharge Summary 2 SIG ---
DATE OF ADMISSION: 09/26/2016 DATE OF DISCHARGE: 09/29/2016 CONSULTANTS: 1. Harman Jacobsen M.D. 2. Jordy Chung M.D. 3. Jean Casas M.D. BRIEF HOSPITAL COURSE: The patient is a 56-year-old female with medical history of hypertension, right eye sixth nerve palsy, diabetes type 2, obesity, and hyperlipidemia presented to ED with headache described to be right-sided and severe that feels in the right eye. There was also epigastric discomfort. No fevers. No chills. On evaluation at ED, laboratories showed no leukocytosis with stable hemoglobin and hematocrit. Sodium was 124, potassium was 5.8, which was treated with Kayexalate. EKG showed normal sinus rhythm. Chest x-ray showed no acute cardiopulmonary disease. Urine was negative for urinary tract infection. On evaluation, there was nonfocal neurologic deficits noted aside from the sixth nerve palsy. She was given Reglan and Benadryl. Right eye pressure was checked with tonometer and was 20 mm pressure. Renal function was normal. The patient was then admitted to telemetry for acute hyponatremia, hyperkalemia, right eye sixth nerve palsy, hypertension, diabetes, and headache. She was given IV hydration with no significant effect on sodium. She was then started on 3% saline solution. Urine osmolality was 181, random sodium at 85, and serum sodium 126. She improved with hypertonic saline infusion. She was also seen by Dr. Jacobsen to evaluate progressive pain on the right eye and right side of the neck with retro-orbital pain. CRP was 0.7 with a sedimentation rate of 24. On neurologic examination, pupils are both responding to light and to accommodation. There is partial right eye ptosis and inner gaze palsy of the right eye with somewhat limited down gaze movement. Corneal responses were normal and there was no palpable tenderness in the trigeminal nerve exit area. She had acute right oculomotor nerve palsy probably diabetic mononeuropathy. There was no evidence of temporal arteritis and no evidence of trigeminal neuralgia. Neurologic findings consist of third nerve palsy which is recurrent. Due to severity and progression of headache as well as retro-orbital pain, retro orbital mass lesion needs to be ruled out. The patient will eventually need full funduscopic examination per Ophthalmology. MRI of the orbit, face, and neck was negative with no evidence of optic neuritis. There was presence of left middle cranial fossa arachnoid cyst. Brain MRI was also negative. She was given bowel regimen consisting of MiraLAX, Colace and Dulcolax and was given p.r.n. Zofran. She was given vitamin B complex and had BM, advised outpatient gastrointestinal colonoscopy. She was eventually discharged home. Advised to follow up with Ophthalmology as outpatient. FINAL DIAGNOSES: 1. Right-sided ophthalmoplegia. 2. Headache. 3. Gastroesophageal reflux disease. 4. Hypertension. 5. Diabetes. 6. Constipation. 7. Hyponatremia. 8. Obesity. Craig Bobby M.D. I have been assigned to dictate discharge summary on this account and I was not involved in the patient's management. Yany Newman N.P. DR: MASON JOB#: [id number] CC: CADEN
== END 2016-09-29 15:29 | disposition home or self-care (01) | DRG 48 ==
LOC: EMR 23:15 → 2E 09-26 03:09 → EDBEDREQ 09-26 03:30 → 4E 09-26 16:09
DX: E11.41 Type 2 diabetes mellitus with diabetic mononeuropathy (principal); H49.21 Sixth [abducent] nerve palsy, right eye; H49.01 Third [oculomotor] nerve palsy, right eye; I10 Essential (primary) hypertension; E87.1 Hypo-osmolality and hyponatremia; E11.65 Type 2 diabetes mellitus with hyperglycemia; G93.0 Cerebral cysts; K21.9 Gastro-esophageal reflux disease without esophagitis; E87.5 Hyperkalemia; Z79.4 Long term (current) use of insulin; E78.5 Hyperlipidemia, unspecified; R51 Headache; E66.01 Morbid (severe) obesity due to excess calories; Z68.41 Body mass index [BMI] 40.0-44.9, adult; R10.13 Epigastric pain; K59.00 Constipation, unspecified; R11.0 Nausea
CPT/HCPCS: 36415; 70543; 70553; 71010; 80048; 80053; 80061; 81001; 82550; 82962; 82977; 83036; 83735; 83880; 83930; 83935; 84100; 84300; 84443; 84484; 84550; 85025; 85610; 85651; 85730; 86140; 93005; 94664; 97802; A9585; J1815; J2765; S5561